=== PATIENT | male | born 1945 | race Caucasian/White ===

== ENCOUNTER → 2019-03-24 06:11 | Outpatient (CLI) | payer MEDICARE, SELFPAY ==
[2019-01-12 09:11] VITALS: BMI 36.6
--- NOTE | 2019-03-24 10:17 | STRESSREP ---
Stress Test Report Date: 03-24-19 Procedure: Pharmacologic stress nuclear imaging study Indications: Chest pain; ventricular ectopy/dysrhythmia; CAD; PCI; CABG; permanent pacemaker Consent: Per the patient Procedure: The patient underwent pharmacologic (Regadenoson) evaluation with a peak heart rate of 71 beats per minute (48 %predicted maximal heart rate) and a peak blood pressure of 148/64 mmHg. The baseline ECG demonstrated an electronic ventricular paced rhythm. The peak pharmacologic ECG demonstrated an electronic ventricular paced rhythm. There were no cardiac dysrhythmias pretest, during pharmacologic infusion, or recovery. There was no complaint of chest discomfort during pharmacologic infusion or recovery. The examination was discontinued secondary to completion of protocol. Impression: 1. Pharmacologic (Regadenoson) evaluation 2. Peak pharmacologic ECG with an electronic ventricular paced rhythm. 3. There were no cardiac dysrhythmias pretest, during pharmacologic infusion, or recovery. 4. Nuclear images pending Myocardial perfusion imaging study: Technique: The patient was injected with 14.8 millicuries of technetium 99m Cardiolite and subsequently rest SPECT Cardiolite nuclear imaging was obtained in the horizontal long, vertical long, and short axis views. The patient underwent pharmacologic (Regadenoson) evaluation with a peak heart rate of 71 beats per minute (48 % percent predicted maximal heart rate) and a peak blood pressure of 148/64 mmHg. The patient was injected with 44.1 millicuries of technetium 99m Cardiolite and subsequently stress SPECT Cardiolite nuclear imaging was obtained in the horizontal long, vertical long, and short axis views. A gated Cardiolite study at peak stress was obtained. Interpretation: Rest and stress SPECT Cardiolite nuclear imaging status post realignment, normalization, and attenuation correction demonstrate finished absence of myocardial perfusion/tracer uptake in the apical segments without significant change between rest and stress. There is diminished and systolic thickening and brightening in the aforementioned areas. The gated Cardiolite study demonstrates diminished myocardial thickening and inward wall motion in the aforementioned areas. The reported LVEF is 50 %. Impression: 1. SPECT cardio light nuclear imaging demonstrate myocardial perfusion changes compatible with previous myocardial injury/infarction involving the apical areas with no myocardial perfusion changes considered diagnostic for associated stress-induced myocardial ischemia. 2. The gated Cardiolite study reports an LVEF of 50 %. This note was generated with [employer] mobile software. It may contain incorrect words, spelling, and punctuation that were not noted in checking the note before signing.
--- NOTE | 2019-03-24 10:21 | STRESSREP_ITS ---
Stress Test Report Date: 03-24-19 Procedure: Pharmacologic stress nuclear imaging study Indications: Chest pain; ventricular ectopy/dysrhythmia; CAD; PCI; CABG; permanent pacemaker Consent: Per the patient Procedure: The patient underwent pharmacologic (Regadenoson) evaluation with a peak heart rate of 71 beats per minute (48 %predicted maximal heart rate) and a peak blood pressure of 148/64 mmHg. The baseline ECG demonstrated an electronic ventricular paced rhythm. The peak pharmacologic ECG demonstrated an electronic ventricular paced rhythm. There were no cardiac dysrhythmias pretest, during pharmacologic infusion, or recovery. There was no complaint of chest discomfort during pharmacologic infusion or recovery. The examination was discontinued secondary to completion of protocol. Impression: 1. Pharmacologic (Regadenoson) evaluation 2. Peak pharmacologic ECG with an electronic ventricular paced rhythm. 3. There were no cardiac dysrhythmias pretest, during pharmacologic infusion, or recovery. 4. Nuclear images pending Myocardial perfusion imaging study: Technique: The patient was injected with 14.8 millicuries of technetium 99m Cardiolite and subsequently rest SPECT Cardiolite nuclear imaging was obtained in the horizontal long, vertical long, and short axis views. The patient underwent pharmacologic (Regadenoson) evaluation with a peak heart rate of 71 beats per minute (48 % percent predicted maximal heart rate) and a peak blood pressure of 148/64 mmHg. The patient was injected with 44.1 millicuries of technetium 99m Cardiolite and subsequently stress SPECT Cardiolite nuclear imaging was obtained in the horizontal long, vertical long, and short axis views. A gated Cardiolite study at peak stress was obtained. Interpretation: Rest and stress SPECT Cardiolite nuclear imaging status post realignment, normalization, and attenuation correction demonstrate finished absence of myocardial perfusion/tracer uptake in the apical segments without significant change between rest and stress. There is diminished and systolic thickening and brightening in the aforementioned areas. The gated Cardiolite study de monstrates diminished myocardial thickening and inward wall motion in the aforementioned areas. The reported LVEF is 50 %. Impression: 1. SPECT cardio light nuclear imaging demonstrate myocardial perfusion changes compatible with previous myocardial injury/infarction involving the apical areas with no myocardial perfusion changes considered diagnostic for associated stress-induced myocardial ischemia. 2. The gated Cardiolite study reports an LVEF of 50 %. This note was generated with MySQL software. It may contain incorrect words, spelling, and punctuation that were not noted in checking the note before signing.
== END ==
PROVIDERS: Family Provider Internal Medicine; PCP Internal Medicine; Referring Provider Nurse Practitioner Family; Visit Provider Nurse Practitioner Family
DX: I25.810 Atherosclerosis of coronary artery bypass graft(s) without angina pectoris (principal); I47.2 Ventricular tachycardia; Z95.1 Presence of aortocoronary bypass graft
CPT/HCPCS: 78452; 93017; A9500; A4216; J2785

== ENCOUNTER → 2019-03-25 15:36 | Outpatient (CLI) | payer MEDICARE, SELFPAY ==
[2019-01-12 09:11] VITALS: BMI 36.6
[2019-03-25 17:19] LABS: Absolute Lymphocyte Count 1.81 X10^3/ul (0.83-4.51); Absolute Neutrophil Count 3.6 X10^3/uL (2.0-7.7); Basophil# 0.01 X10^3/uL; Basophil% 0.2 % (0-1); Eosinophil# 0.13 X10^3/uL; Eosinophils% 2.1 % (0-5); Hematocrit 39.1 % (40-54); Hemoglobin 12.8 g/dl (13.0-16.5); Lymphocyte # 1.81 X10^3/ul (4.0); Lymphocyte % 29.8 % (19-41); Mean Corp Hgb Conc 32.7 g/gl (32-36); Mean Corpuscular Hgb 28.3 pg (27.0-32.0); Mean Corpuscular Volume 86.3 fL (80-94); Mean Platelet Vol. 10.5 fl (6.2-12.0); Monocyte# 0.54 X10^3/uL; Monocyte% 8.9 % (0-10); Neutrophil # 3.57 X10^3/uL (2.7-7.7); Neutrophil % 58.8 % (47-70); Platelet Count 181 K/mm3 (150-450); RBC Distribution Width CV 13.8 % (11.6-14.6); Red Blood Count 4.53 M/mm3 (4.6-6.2); White Blood Count 6.1 K/mm3 (4.4-11.0)
[2019-03-25 17:23] LABS: Vitamin B12 118 pg/mL (211-911); Vitamin D,25 Hydroxy 25.3 ng/mL (29.95-100.01)
[2019-03-25 17:25] LABS: Anion Gap 8 (5-15); BUN 19 mg/dL (7-18); BUN/Creat Ratio 14.5 RATIO (10-20); Calcium,Total 8.9 mg/dL (8.5-10.1); Chloride 106 mmol/L (98-107); Creatinine, Serum 1.31 mg/dL (0.70-1.30); EST Glomerular Filtration Rate 57 mL/min (>60); Est Glom Filt Rate - Afr Amer 69 mL/min (>60); Glucose 301 mg/dL (74-106); POSITIVE COUNT NO; POSITIVE DIFFERENTIAL NO; POSITIVE MORPHOLOGY NO; Potassium 4.4 mmol/L (3.5-5.1); Sodium Level 139 mmol/L (136-145); T4 Free Direct 0.88 ng/dL (0.76-1.46); Thyroid Stim Hormone (TSH) 2.22 uIU/mL (0.358-3.74)
== END ==
PROVIDERS: Family Provider Internal Medicine; PCP Internal Medicine; Referring Provider Nurse Practitioner Family; Visit Provider Nurse Practitioner Family
DX: R53.83 Other fatigue (principal); I25.810 Atherosclerosis of coronary artery bypass graft(s) without angina pectoris; E11.9 Type 2 diabetes mellitus without complications; Z95.1 Presence of aortocoronary bypass graft
CPT/HCPCS: 36415; 80048; 82306; 82607; 84439; 84443; 85025

== ENCOUNTER 2022-05-22 18:05 | Inpatient (IN) | payer MEDICARE, SELFPAY ==
[2022-05-22] VITALS (7 sets, daily range): BP systolic 176–216; BP diastolic 69–95; PULSE 73–78; RESP 13–18; TEMP 36.4–36.6; O2SAT 95–98; BMI 34.4
--- NOTE | 2022-05-22 18:15 | EKG12_ITS ---
Test Reason : cp Blood Pressure : / mmHG Vent. Rate : 075 BPM Atrial Rate : 075 BPM P-R Int : 194 ms QRS Dur : 184 ms QT Int : 482 ms P-R-T Axes : 082 -67 105 degrees QTc Int : 538 ms Atrial-sensed ventricular-paced rhythm Abnormal ECG Confirmed by COLUMBA LAIRD, JUNAID ([id number]), editor index LISA MENDOZA ([id number]) on 05/24/2022 2:10:28 PM Referred By: Confirmed By:JUNAID WATERMAN MD
--- NOTE | 2022-05-22 18:36 | ED.VIS.CHEST ---
HPI History of Present Illness Chief Complaint: Chest Pain Narrative Narrative: 76-year-old male presenting with intermittent chest pain. Patient states that he feels kind of like tightness in the left side of his chest that radiates into the axilla. He states he takes a nitroglycerin and about 10 to 15 minutes later this will get better. Patient has history of CAD, cardiac stents, ND, CABG. Patient also states he is short of breath with exertion. He states he goes much shorter distances. He states his lower extremities are more edematous. He denies a cough. He does not describe orthopnea. No fevers, chills. No nausea. No lightheadedness. 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 CAD (coronary artery disease) Essential hypertension Myocardial infarct, old Presence of stent of bypass graft (~08/01/16) Pure hypercholesterolemia Second degree atrioventricular block Home Medications folic acid 400 mcg tablet 400 mcg PO DAILY@0800 07/28/16 [History Last Taken 07/28/16] glipizide 10 mg tablet 10 mg PO BIDAC 07/28/16 [History Last Taken Unknown] metformin 1,000 mg tablet 1,000 mg PO BIDCM 07/28/16 [History Last Taken Unknown] aspirin 81 mg chewable tablet 1 tab PO DAILY 07/07/21 [History Last Taken Unknown] clopidogrel 75 mg tablet 75 mg PO QDAY #90 tabs 11/21/21 [Rx Last Taken Unknown] lovastatin 20 mg tablet 20 mg PO DAILY #90 tabs 11/21/21 [Rx Last Taken Unknown] nitroglycerin 0.4 mg sublingual tablet (Nitrostat) 0.4 mg sublingual Q5M PRN chest pain #25 tabs 03/30/22 [Rx Last Taken Unknown] atenolol 50 mg tablet 50 mg PO DAILY 05/22/22 [History Last Taken Unknown] insulin detemir U-100 100 unit/mL (3 mL) subcutaneous pen (Levemir FlexTouch U-100 Insulin) 20 unit subcut QHS 05/22/22 [History Last Taken Unknown] isosorbide mononitrate 30 mg tablet,extended release 24 hr 30 mg PO DAILY #30 tabs 05/22/22 [Rx Last Taken Unknown] lisinopril 20 mg tablet 20 mg PO DAILY 05/22/22 [History Last Taken Unknown] Allergy/AdvReac Type Severity Reaction Status Date / Time No Known Allergies Allergy Verified 05/22/22 13:32 Family History Father Hypertension CVA (cerebral vascular accident) Mother CVA (cerebral vascular accident) Sister Mitral valve prolapse Surgical History History of back surgery History of coronary artery bypass surgery (~1996) Presence of cardiac pacemaker Presence of coronary angioplasty implant and graft S/P CABG (coronary artery bypass graft) (~1996) Social History Smoking Status: Former smoker how long ago did patient quit smokin alcohol intake: current alcohol intake frequency: holidays/special occasions only Alcohol type: beer substance use type: does not use caffeine: Yes Type: coffee Number of servings: 2 what type of physical activity do you participate in: none seatbelt use: always do you feel safe at home: Yes ROS ROS ED Constitutional Constitutional ED: Denies chills or fever(s) Eyes Eyes: Denies blurry vision or change in vision ENT ENT ED: Denies rhinorrhea or sore throat Cardiovascular Cardiovascular: Reports chest pain Respiratory/Chest Respiratory/Chest: Reports dyspnea and dyspnea on exertion Gastrointestinal Gastrointestinal: Denies abdominal pain, constipation, melena or nausea Genitourinary Genitourinary ED: Denies dysuria or hematuria Musculoskeletal Musculoskeletal: Denies arthralgias or back pain Integumentary Denies abscess or Abrasions Neurologic Neurologic: Denies headache(s) or paresthesias Psychiatric Psychiatric: Denies anxiety or depression EXAM Physical Exam Const Vital Signs: 05/22/22 18:06 05/22/22 18:06 05/22/22 18:12 Temperature 97.5 F L 97.5 F L Temperature Source Temporal Temporal Pulse Rate 77 77 Respiratory Rate 18 18 Respiratory Effort Normal Non-Labored Blood Pressure 216/95 H 216/95 H Blood Pressure Mean 135 135 Pulse Ox 96 96 Oxygen Delivery Method Room Air Room Air 05/22/22 18:29 05/22/22 20:32 Temperature Temperature Source Pulse Rate 73 Respiratory Rate 13 Respiratory Effort Blood Pressure 176/69 H Blood Pressure Mean 104 Pulse Ox 96 Oxygen Delivery Method Room Air Room Air Positive well nourished General Appearance ED: NAD; Negative for pallor HEENT Reports moist mucous membranes normocephalic and atraumatic Eyes PERRL and EOMs intact bilaterally Chest Wall inspection of chest normal and palpation of chest normal Resp normal respiratory effort and clear to auscultation bilaterally Cardio regular rate and regular rhythm GI normal to inspection, nondistended, normoactive bowel sounds Neuro oriented x3 and CN's II-XII intact bilaterally Sensorium / Orientation: awake and alert Psych mental status grossly normal Skin General Skin Exam: Negative for jaundice or pallor Heart Score History: Highly Suspicious ECG: Normal Age: >/= 65 years Risk Factors: >/= 3 Risk Factors or History of CAD Troponin: >1 - <3 Normal Limit Score: 7 MDM MDM MDM Narrative Medical decision making narrative: Patient presenting with intermittent chest pain 2 weeks. He states it is left-sided radiates to the axilla. He states this improves after about 10 to 15 minutes of taking nitroglycerin. Patient has significant cardiac history. Heart score 7. Patient has lower extremity edema. No history of CHF. BNP is elevated at 500. High-sensitivity troponin was 138 outpatient days 142 here. Patient has not had any chest pain since that time. Chest x-ray on my interpretation shows no acute cardiopulmonary process and the radiologist does agree. EKG is a paced rhythm 75 bpm without sign of ischemic change on my interpretation. Patient discussed with Dr. Millan who wants to keep him n.p.o. after midnight. He wants to perform cardiac catheterization on him tomorrow. I did discuss with him that the patient was hypertensive and I gave hydralazine his pressure did improve. Dr. Millan requested I give him 40 of Lasix IV. This was performed. Patient counseled on all findings. He is admitted to the floor in stable condition. Impression: 1. Chest pain 2. Elevated troponin 3. Dyspnea on exertion 4. Lower extremity edema Lab Data Attestation: I reviewed the patient's lab results. Labs: Laboratory Results - last 24 hr 05/22/22 18:30 Troponin I High Sens 142 H* Radiography Diagnostic Testing: Clinical Impression(s) from Imaging Studies Chest X-Ray 05/22/22 18:40 IMPRESSION: There are no acute findings. Electronically Signed: Rico Figueredo MD at 18:59 EDT Reading Location ID and State: [facility] / [place] , Service support , Discharge Plan Triage Chief Complaint: Chest Pain ED Provider: Tank Monreal Dx/Rx/DC Orders Primary Care Provider: Georgina Méndez
--- NOTE | 2022-05-22 18:40 | RAD_ITS ---
STUDY: XR Chest 1 View 05/22/2022 6:40 PM REASON FOR EXAM: Male, 76 years old. CHEST PAIN chest pain COMPARISON: 07/28/2016 TECHNIQUE: XR Chest 1 View FINDINGS: There is no demonstrated pleural abnormality. Multiple median sternotomy wires are noted consistent for cardiac surgery. There is a left sided pacemaker battery pack. Normal heart size. Normal mediastinum. Normal kevin. Prominent appearing increased interstitial lung markings. Normal visualized pulmonary arteries. There is atherosclerotic calcification of the aortic arch with tortuosity. There are diffuse degenerative changes of the visualized thoracic spine. There is degenerative osteoarthritis of the bilateral shoulders. There is no demonstrated abnormality of the visualized soft tissue structures of the upper abdomen. RAD/Chest 1 View (Portable) IMPRESSION: There are no acute findings. Electronically Signed: Rico Figueredo MD at 18:59 EDT ,
[2022-05-22] MEDS: Aspirin 81 MG TAB.CHEW 324 MG PO (18:43)
[2022-05-22] MEDS: hydrALAZINE 20 MG/ML Vial 10 MG IV ×2 (18:43→22:25)
[2022-05-22 19:08] LABS: Troponin-I HS (w/2H Reflex) 142 pg/mL (3.0-78.0)
[2022-05-22 20:36] LABS: Reflex Troponin-HS? (from REC) Y
[2022-05-22] MEDS: Furosemide 40 MG/4 ML Vial IV (21:10)
--- NOTE | 2022-05-22 21:15 | HP.PCM.HOS_ITS ---
HPI - General General Date of Admission: 05/22/22 Date of Service: 05/22/22 Chief Complaint: Chest pain HPI Narrative NAKIA HERNÁNDEZ, is a 76 M with a significant history of CAD status post CABG and stent; former tobacco abuse and permanent pacemaker who presents to the emergency department with 2 to 3 weeks of episodic substernal chest pain that radiates to the left side of his chest. The pain last for about 15 minutes. He described the pain as a pressure. The pain improves with nitroglycerin. The pain worsens with exertion. Associated with symptom is some shortness of breath. He denies any nausea or vomiting. He reports bilateral feet edema for about 1 week. Further, patient reports paroxysmal nocturnal dyspnea. He is unsure whether he has orthopnea as he always lie on his side. On the same day of presentation patient's saw cardiology nurse practitioner outpatient. Because troponin and BNP was elevated patient was called and instructed to come to the emergency department. Emergency department course: Emergency department discussed the case with cardiology and recommendation was to give Lasix 40 mg IV push. 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 CAD (coronary artery disease) Essential hypertension Myocardial infarct, old Presence of stent of bypass graft (~08/01/16) Pure hypercholesterolemia Second degree atrioventricular block Home Medications folic acid 400 mcg tablet 400 mcg PO DAILY@0800 07/28/16 [History Last Taken 07/28/16] glipizide 10 mg tablet 10 mg PO BIDAC 07/28/16 [History Last Taken Unknown] metformin 1,000 mg tablet 1,000 mg PO BIDCM 07/28/16 [History Last Taken Unknown] aspirin 81 mg chewable tablet 1 tab PO DAILY 07/07/21 [History Last Taken Unknown] clopidogrel 75 mg tablet 75 mg PO QDAY #90 tabs 11/21/21 [Rx Last Taken Unknown] lovastatin 20 mg tablet 20 mg PO DAILY #90 tabs 11/21/21 [Rx Last Taken Unknown] nitroglycerin 0.4 mg sublingual tablet (Nitrostat) 0.4 mg sublingual Q5M PRN chest pain #25 tabs 03/30/22 [Rx Last Taken Unknown] atenolol 50 mg tablet 50 mg PO DAILY 05/22/22 [History Last Taken Unknown] insulin detemir U-100 100 unit/mL (3 mL) subcutaneous pen (Levemir FlexTouch U- 100 Insulin) 20 unit subcut QHS 05/22/22 [History Last Taken Unknown] isosorbide mononitrate 30 mg tablet,extended release 24 hr 30 mg PO DAILY #30 tabs 05/22/22 [Rx Last Taken Unknown] lisinopril 20 mg tablet 20 mg PO DAILY 05/22/22 [History Last Taken Unknown] Allergy/AdvReac Type Severity Reaction Status Date / Time No Known Allergies Allergy Verified 05/22/22 13:32 Family History Father Hypertension CVA (cerebral vascular accident) Mother CVA (cerebral vascular accident) Sister Mitral valve prolapse Surgical History History of back surgery History of coronary artery bypass surgery (~1996) Presence of cardiac pacemaker Presence of coronary angioplasty implant and graft S/P CABG (coronary artery bypass graft) (~1996) Social History Smoking Status: Former smoker how long ago did patient quit smokin alcohol intake: current alcohol intake frequency: holidays/special occasions only Alcohol type: beer substance use type: does not use caffeine: Yes Type: coffee Number of servings: 2 what type of physical activity do you participate in: none seatbelt use: always do you feel safe at home: Yes ROS ROS Narrative Pertinent positives and pertinent negatives as noted in HPI. All other systems were reviewed and are negative. Vital Signs Vital Signs Vital Signs: 05/22/22 18:06 05/22/22 18:06 05/22/22 18:12 Temperature 97.5 F L 97.5 F L Temperature Source Temporal Temporal Pulse Rate 77 77 Respiratory Rate 18 18 Respiratory Effort Normal Non-Labored Blood Pressure 216/95 H 216/95 H Blood Pressure Mean 135 135 Pulse Ox 96 96 Oxygen Delivery Method Room Air Room Air 05/22/22 18:29 05/22/22 20:32 Temperature Temperature Source Pulse Rate 73 Respiratory Rate 13 Respiratory Effort Blood Pressure 176/69 H Blood Pressure Mean 104 Pulse Ox 96 Oxygen Delivery Method Room Air Room Air Weight Weight: 121.7 kg Body Mass Index (BMI) 34.4 Physical Exam Narrative Physical exam: General: Well-nourished, well-developed. Head: Normocephalic, atraumatic, no tenderness Eyes: Vision is grossly intact. EOMI ENT, no trauma, moist mucous membranes, no rhinorrhea Neck: Nontender, full range of motion, no spinal tenderness, deformities, step- off CVS: Regular rate and rhythm. S1-S2 present. No murmur, gallop or rub. Respiratory : clear to auscultation bilaterally, chest wall nontender, no wheezing Abdomen: Soft, nontender, nondistended, normal bowel sounds, no masses : Deferred Back: Nontender, no CVA tenderness, no midline spinal tenderness, deformities, step-offs Extremities: 1+ bilateral feet edema; nontender full range of motion, no trauma Skin: Normal color, no trauma, abrasions Neuro: Alert, oriented, cranial nerves II through XII grossly intact. Psychiatry: Normal mood. Normal affect. Not depressed. Not anxious. Results Lab / Micro Data Labs: Laboratory Results - last 24 hr 05/22/22 18:30: Troponin I High Sens 142 H* Radiology Impression Chest X-Ray 05/22/22 18:40 IMPRESSION: There are no acute findings. Electronically Signed: Rico Figueredo MD at 18:59 EDT Reading Location ID and State: [facility] / [place] , Service support , Assessment & Plan Assessment/Plan (1) NSTEMI, initial episode of care: (2) Hypertensive emergency: (3) Diabetes mellitus, type 2: PLAN: Plan Non-STEMI Place on a monitored bed at progressive care unit Actual CXR image was independently visualized. No acute cardiopulmonary process was noted. Actual EKG tracing was independently visualized. EKG tracing showed paced rhythm. ASA 81 mg p.o. daily and plavix continued ordered SL NTG 0.4 mg prn as needed for chest pain ordered Morphine as needed for pain ordered We will check lipid panel. Statin: Home statin continued. Anticoagulation: Lovenox therapeutic dose x1 ordered. Troponin outpatient was 136. Follow-up troponin was 142 and 138. Stat EKG as needed for chest pain Cardiology consult Dyspnea/ Bilateral lower extremity edema/Elevated BNP BNP outpatient 540.5 Echocardiogram ordered. Hypertensive emergency Max systolic blood pressure of 216. With chest pain. Received hydralazine at emergency department. Atenolol; lisinopril and metoprolol. PRN Hydralazine ordered. Diabetes mellitus Blood glucose is stable. Hold home basal insulin and metformin. Monitor Accu-Cheks Correction scale insulin ordered. DVT prophylaxis: Therapeutic dose of Lovenox x1 ordered. SCDs ordered. Charges/Coding Visit Charges Inpatient E&M: 21427 Init Hosp L3
[2022-05-22 21:32] LABS: Troponin-I HS 138 pg/mL (3.0-78.0)
--- NOTE | 2022-05-22 21:58 | EKG12_ITS ---
Test Reason : CP Blood Pressure : / mmHG Vent. Rate : 072 BPM Atrial Rate : 072 BPM P-R Int : 186 ms QRS Dur : 192 ms QT Int : 520 ms P-R-T Axes : 075 -71 102 degrees QTc Int : 569 ms Atrial-sensed ventricular-paced rhythm Abnormal ECG When compared with ECG of 22-MAY-2022 22:39, MANUAL COMPARISON REQUIRED, DATA IS UNCONFIRMED Confirmed by COLUMBA LAIRD, JUNAID ([id number]), editor city VINH MEZA ([id number]) on 05/29/2022 11:05:42 AM Referred By: Confirmed By:JUNAID WATERMAN MD
--- NOTE | 2022-05-22 21:58 | ECHOCS_ITS ---
Reason For Study: DYSPNEA/SOB Procedure This was a 2D Doppler, Color Flow transthoracic echocardiogram. The study was technically difficult. Contrast injection was performed. Exam performed portable in patient room. Left Ventricle Segmental dysfunction with preserved ejection fraction (see wall motion). The estimated ejection fraction is 55 %. Diastolic function is indeterminate. Anterior [place] : Hypokinetic. Inferior [place] : Akinetic. Lateral [place] : Hypokinetic. Septal [place] : Akinetic. Right Ventricle Normal RV size. ICD or pacer leads identified within the right ventricle. Normal systolic function. Atria The left atrium is mildly enlarged. Normal right atrium. ICD or pacer leads identified within the right atrium. Mitral Valve There is mild mitral annular calcification. Extension of the mitral annular calcification onto the base of the posterior mitral valve leaflet. Mild (1+) mitral valve insufficiency. Tricuspid Valve Normal tricuspid valve. Trivial tricuspid valve insufficiency. Right ventricular systolic pressure estimated to be 33 mmHg. Aortic Valve The aortic valve is not well visualized. Pulmonic Valve The pulmonic valve is not well visualized. Great Vessels The aortic root is not well visualized. Pericardium/Pleural No pericardial effusion. Medication Diluted definity 1.5ml given slow IV push to enhance endocardial definition. MMode/2D Measurements & Calculations RVDd: 3.0 cm LAV(MOD-bp): 106.5 ml LA A4 area: 27.0 cm2 LAV(MOD-bp) Indexed: 42.4 ml/m2 LAV(MOD-sp2): 107.6 ml LAV(MOD-sp4): 90.8 ml LA dimension(2D): 4.1 cm RA A4 area: 16.7 cm2 Time Measurements MV dec time: 0.21 sec Doppler Measurements & Calculations MV E max rolly: 96.5 cm/sec Lat Peak E' Rolly: 8.0 cm/sec Med Peak E' Rolly: 4.4 cm/sec MV A max rolly: 55.4 cm/sec E/E' lat: 12.0 E/E' med: 21.8 MV E/A: 1.7 MV V2 max: 96.7 cm/sec Ao V2 max: 129.6 cm/sec MV max P.7 mmHg MV dec slope: 460.0 cm/sec2 Ao max P.7 mmHg MV V2 mean: 58.0 cm/sec Ao V2 mean: 84.1 cm/sec MV mean P.5 mmHg Ao mean P.4 mmHg MV V2 VTI: 34.8 cm Ao V2 VTI: 29.8 cm LV V1 max: 101.4 cm/sec MR max rolly: 437.4 cm/sec TR max rolly: 274.9 cm/sec LV V1 max P.1 mmHg MR max P.5 mmHg TR max P.2 mmHg LV V1 mean P.2 mmHg LV V1 mean: 67.6 cm/sec LV V1 VTI: 24.1 cm ECHO/Echo Complete W/ Contrast Interpretation Summary The study was technically difficult. Contrast injection was performed. Segmental dysfunction with preserved ejection fraction (see wall motion). The estimated ejection fraction is 55 %. The left atrium is mildly enlarged. There is mild mitral annular calcification. Extension of the mitral annular calcification onto the base of the posterior mi tral valve leaflet. Mild (1+) mitral valve insufficiency. Trivial tricuspid valve insufficiency. Right ventricular systolic pressure estimated to be 33 mmHg. Diastolic function is indeterminate. ICD or pacer leads identified within the right atrium ICD or pacer leads identified within the right ventricle. Ordering Physician: Baldemar Suero Performed By: Hannah Gage RCS
[2022-05-22] MEDS: 0.9% Saline Lock 10 ML Syringe IV (22:25)
[2022-05-22] MEDS: Atorvastatin Calcium 10 MG Tablet 5 MG PO (23:07)
[2022-05-22] MEDS: Enoxaparin 120 MG/0.8 ML Syringe SC (23:07)
[2022-05-23] VITALS (25 sets, daily range): BP systolic 129–187; BP diastolic 50–83; PULSE 60–79; RESP 12–20; TEMP 36.4–36.9; O2SAT 92–99; BMI 34.0; BMI 34.2
[2022-05-23 00:57] LABS: Troponin-I HS 143 pg/mL (3.0-78.0)
[2022-05-23 05:04] LABS: Bedside Glucose 180 mg/dL (74-106)
[2022-05-23 05:48] LABS: Absolute Lymphocyte Count 1.38 X10^3/uL (0.83-4.51); Absolute Neutrophil Count 4.5 X10^3/uL (2.0-7.7); Basophil# 0.03 X10^3/uL; Basophil% 0.4 % (0-1); Eosinophil# 0.09 X10^3/uL; Eosinophils% 1.3 % (0-5); Hematocrit 37.7 % (40-54); Hemoglobin 12.1 g/dL (13.0-16.5); Lymphocyte # 1.38 X10^3/ul (0.83-4.51); Lymphocyte % 20.4 % (19-41); Mean Corp Hgb Conc 32.1 g/dL (32-36); Mean Corpuscular Hgb 28.3 pg (27.0-32.0); Mean Corpuscular Volume 88.1 fL (80-94); Monocyte# 0.78 X10^3/uL; Monocyte% 11.5 % (0-10); NRBC Flagged by Analyzer 0 % (0-5); Neutrophil # 4.46 X10^3/uL (2.7-7.7); Platelet Count 184 K/mm3 (150-450); RBC Distribution Width CV 15.7 % (11.6-14.6); RBC Distribution Width SD 50.1 fl (35.1-43.9); Red Blood Count 4.28 M/mm3 (4.6-6.2); White Blood Count 6.8 K/mm3 (4.4-11.0)
[2022-05-23] MEDS: Atenolol 50 MG Tablet PO (06:14)
[2022-05-23] MEDS: Clopidogrel Bisulfate 75 MG Tablet PO (06:14)
[2022-05-23] MEDS: Isosorbide Mononitrate 30 MG Tablet PO (06:14)
[2022-05-23] MEDS: Lisinopril 20 MG Tablet PO ×2 (06:15→21:57)
[2022-05-23] MEDS: Aspirin 81 MG TAB.CHEW PO (06:18)
[2022-05-23 06:29] LABS: Anion Gap 9 (5-15); BUN 19 mg/dL (7-18); BUN/Creat Ratio 17.4 RATIO (10-20); Calcium,Total 8.7 mg/dL (8.5-10.1); Chloride 104 mmol/L (98-107); Cholesterol 123 mg/dL (200); Creatinine, Serum 1.09 mg/dL (0.70-1.30); EST Glomerular Filtration Rate 70 mL/min (>60); Est Glom Filt Rate - Afr Amer 84 mL/min (>60); Estimated Creatinine Clearance 65.99 ml/min; Glucose 177 mg/dL (74-106); High Density Lipoprotein 38 mg/dL; Potassium 3.6 mmol/L (3.5-5.1); Sodium Level 141 mmol/L (136-145); Triglycerides 116 mg/dL; Very Low Density Lipoprotein 23 mg/dL (5-40)
[2022-05-23 06:45] LABS: Bedside Glucose 184 mg/dL (74-106)
--- NOTE | 2022-05-23 07:38 | CON.PCM.CA_ITS ---
Assessment & Plan Assessment/Plan (1) NSTEMI, initial episode of care: PLAN: The patient presents with findings compatible with an acute coronary syndrome/non-ST segment elevation IL. At the present time he appears without ongoing symptoms at rest. He will continue to be monitored. He will continue medical therapy. He has been asked to have reevaluation of his left ventricular wall motion and systolic function with a transthoracic echocardiogram. He has been recommended for further evaluation with diagnostic cardiac catheterization. The procedure and risk were discussed with him. He was agreeable to this approach. (2) Atherosclerosis of coronary artery bypass graft without angina pectoris: QUALIFIERS: [place] vs. transplanted heart: blackfeet heart Qualified Code(s): I25.810 - Atherosclerosis of coronary artery bypass graft(s) without angina pectoris PLAN: The patient has a history of CAD as previously noted. He has undergone revascularization in the past both percutaneously and surgically. He is continuing medical management. He will continue with his noninvasive and invasive evaluation. (3) Presence of stent of bypass graft: PLAN: The patient has a history of PCI to the SVG to the RCA performed at [facility] in 2016. His more recent noninvasive studies are noted. He will continue medical evaluation and care as noted above. (4) History of coronary artery bypass surgery: PLAN: The patient has remote CABG as noted. Again at the present time there is concern about progression of black[place] vessel disease and graft vessel disease. He will continue medical evaluation and care as noted. (5) Presence of cardiac pacemaker: PLAN: The patient has a pacemaker in place. It has not been interrogated since April 2021. An attempt will be made to have his pacemaker interrogated and arrange for future appropriate follow-up. (6) Pure hypercholesterolemia: PLAN: The patient should continue risk factor evaluation and care. (7) Essential hypertension: PLAN: The patient's blood pressures have been elevated. This may be a contributing factor to his symptoms and his objective findings. Thus his medications will be adjusted to try and bring his blood pressure under better control. Addt'l Comments The above has been discussed and reviewed with the patient, [facility] clinical staff, and the [facility] emergency department staff This note was generated using a voice recognition system and there may be incorrect words, spelling or punctuation that were not noted when reviewing the office note prior to saving. HPI Consult Data Date of Consult: 05/23/22 HPI Narrative HPI Narrative: NAKIA HERNÁNDEZ, is a 76 year old white male who presents for cardio vascular consultation based upon concerns of accelerating angina pectoris and a non-ST segment elevation IL superimposed upon a history of underlying CAD status post PCI (PCI to a CABG graft-2015: SVG to the RCA), status post CABG (1996: ABAD to the LAD and SVG to the RCA), conduction system disorder status post permanent pacemaker placement, hyperlipidemia, and hypertension. He states that over the last 2 to 3 weeks he has been noticing progressive chest discomfort. He states he gets a chest pressure that radiates across his precordium and towards his left shoulder area. It does not necessarily radiate into the neck area or down the left upper extremity. He can feel somewhat short of breath and dyspneic with that he has not had ongoing nausea, emesis, or obvious diaphoresis. He denies acute orthopnea or PND. He does states his ankles have been somewhat edematous. There has been no near-syncope or syncope. He was evaluated in the outpatient setting yesterday for his aforementioned concerns. As part of his evaluation he had an outpatient high-sensitivity troponin I level performed. It was abnormal. He was then asked to present to the emergency department for further evaluation. He did so. At that time he stated he had also been using nitroglycerin sublingual which appears to help his discomfort. In the emergency department he had repeat troponin I levels which were also elevated. His ECG demonstrates an underlying ventricular paced rhythm. His chest x-ray demonstrated no acute cardiopulmonary findings. He was subsequently placed in the hospital for further evaluation and care. As part of his care thus far he has been treated for his elevated blood pressures. He also received 1 dose of IV furosemide which he states does seem to have helped with his overall breathing sensation and his lower extremity edema. He has been recommended for further evaluation with cardiovascular consultation to consider evaluation with diagnostic cardiac catheterization. [facility] Medical History Atherosclerosis of coronary artery bypass graft without angina pectoris Atrioventricular conduction disorder CAD (coronary artery disease) Essential hypertension Myocardial infarct, old Presence of stent of bypass graft (~08/01/16) Pure hypercholesterolemia Second degree atrioventricular block Home Medications folic acid 400 mcg tablet 400 mcg PO DAILY@0800 07/28/16 [History Last Taken 07/28/16] glipizide 10 mg tablet 10 mg PO BIDAC 07/28/16 [History Last Taken Unknown] metformin 1,000 mg tablet 1,000 mg PO BIDCM 07/28/16 [History Last Taken Unknown] aspirin 81 mg chewable tablet 1 tab PO DAILY 07/07/21 [History Last Taken Unknown] clopidogrel 75 mg tablet 75 mg PO QDAY #90 tabs 11/21/21 [Rx Last Taken Unknown] lovastatin 20 mg tablet 20 mg PO DAILY #90 tabs 11/21/21 [Rx Last Taken Unknown] nitroglycerin 0.4 mg sublingual tablet (Nitrostat) 0.4 mg sublingual Q5M PRN chest pain #25 tabs 03/30/22 [Rx Last Taken Unknown] atenolol 50 mg tablet 50 mg PO DAILY 05/22/22 [History Last Taken Unknown] insulin detemir U-100 100 unit/mL (3 mL) subcutaneous pen (Levemir FlexTouch U- 100 Insulin) 20 unit subcut QHS 05/22/22 [History Last Taken Unknown] isosorbide mononitrate 30 mg tablet,extended release 24 hr 30 mg PO DAILY #30 tabs 05/22/22 [Rx Last Taken Unknown] lisinopril 20 mg tablet 20 mg PO DAILY 05/22/22 [History Last Taken Unknown] Allergy/AdvReac Type Severity Reaction Status Date / Time No Known Allergies Allergy Verified 05/22/22 13:32 Family History Father Hypertension CVA (cerebral vascular accident) Mother CVA (cerebral vascular accident) Sister Mitral valve prolapse Surgical History History of back surgery History of coronary artery bypass surgery (~1996) Presence of cardiac pacemaker Presence of coronary angioplasty implant and graft S/P CABG (coronary artery bypass graft) (~1996) Social History Smoking Status: Former smoker how long ago did patient quit smokin alcohol intake: current alcohol intake frequency: holidays/special occasions only Alcohol type: beer substance use type: does not use caffeine: Yes Type: coffee Number of servings: 2 what type of physical activity do you participate in: none seatbelt use: always do you feel safe at home: Yes ROS Constitutional Constitutional: Reports as per HPI Eyes Eyes: Reports as per HPI ENT HEENT: Reports as per HPI Cardiovascular Cardiovascular: Reports chest pain with activity, dyspnea on exertion and edema Respiratory/Chest Respiratory/Chest: Reports dyspnea on exertion Gastrointestinal Gastrointestinal: Reports as per HPI Genitourinary Genitourinary: Reports as per HPI Musculoskeletal Musculoskeletal: Reports as per HPI Integumentary Integumentary: Reports as per HPI Neurologic Neurologic: Reports as per HPI Psychiatric Psychiatric: Reports as per HPI Physical Exam Const alert, oriented x3 and no apparent distress HEENT normocephalic, head/scalp atraumatic and hearing grossly normal bilaterally Eyes PERRL, EOMs intact bilaterally, conjunctivae normal and no scleral icterus Neck full ROM, supple and no JVD Chest Chest: midline sternotomy incision Resp clear to auscultation bilaterally Cardio regular rate, regular rhythm, S1 normal heart sound and S2 normal heart sound GI normal to inspection, nondistended, normoactive bowel sounds Extremity no pedal edema Skin no rashes or lesions noted Psych mental status grossly normal Risk Stratification Risk Stratification Applicable: Yes Age >/= 65: Yes >/= 3 CAD Risk Factors (HTN, HLD, DM, family hx of CAD, or current smoker): Yes Aspirin Use in the Past 7 Days: Yes Severe Angina (>/= episodes in 24 hours): Yes EKG ST Changes >/= 0.5mm: No Positive Cardiac Marker: Yes AZRA Risk Stratification Score: 5 AZRA % Risk: 25% Risk Procedure Criteria Type of Procedure Procedure Type: Elective Elective Risks - COVID COVID Risk Discussion: The surgeon/proceduralist and patient have discussed in detail the risk of exp osure to and/or potential harm posed by the COVID-19 virus with having a surgery/procedure at this time versus the risk of delaying the surgery/procedure. It is not possible to know either the risk of delaying the surgery or procedure or chance of getting an infection with perfect accuracy, but a joint decision was made between the patient and the surgeon/proceduralist to proceed at this time with the scheduled surgery/procedure as indicated on the consent form. Objective Data Vital Signs: Vital Signs Temp Pulse Resp BP Pulse Ox O2 Del Method 98.3 F 76 16 165/75 H 97 Room Air 05/23/22 06:05 07/20/22 06:05 05/23/22 06:05 05/23/22 06:05 05/23/22 06:05 05/23/22 06:05 Oxygen Delivery Method Room Air Weight: 265 lb 3.457 oz Body Mass Index (BMI) 34.0 Lab / Micro Data Result Diagrams: 05/23/22 04:22 05/23/22 04:22 Labs: Laboratory Results - last 24 hr 05/22/22 18:30: Troponin I High Sens 142 H* 05/22/22 20:36: Troponin I High Sens 138 H* 05/23/22 00:06: POC Glucose 180 H 05/23/22 00:28: Troponin I High Sens 143 H* 05/23/22 04:22: WBC 6.8, RBC 4.28 L, Hgb 12.1 L, Hct 37.7 L, MCV 88.1, MCH 28.3, MCHC 32.1, RDW Std Deviation 50.1 H, RDW Coeff of Patricia 15.7 H, Plt Count 184, MPV 11.0, Immature Gran % (Auto) 0.400, Neut % (Auto) 66.0, Lymph % (Auto) 20.4, Union % (Auto) 11.5 H, Eos % (Auto) 1.3, Baso % (Auto) 0.4, Absolute Neuts (auto) 4.5, Absolute Lymphs (auto) 1.38, Nucleated RBC % 0 05/23/22 04:22: Sodium 141, Potassium 3.6, Chloride 104, Carbon Dioxide 28.0, Anion Gap 9, BUN 19 H, Creatinine 1.09, Estim Creat Clear Calc 65.99, Est GFR (MDRD) Af Amer 84, Est GFR (MDRD) Non-Af 70, BUN/Creatinine Ratio 17.4, Glucose 177 H, Calcium 8.7, Triglycerides 116, Cholesterol 123, LDL Cholesterol 62, VLDL Cholesterol 23, HDL Cholesterol 38 L 05/23/22 05:54: POC Glucose 184 H Cardiology Labs/Tests 05/23/22 04:22: WBC 6.8, RBC 4.28 L, Hgb 12.1 L, Hct 37.7 L, MCV 88.1, MCH 28.3, MCHC 32.1, Plt Count 184, MPV 11.0, Immature Gran % (Auto) 0.400, Neut % (Auto) 66.0, Lymph % (Auto) 20.4, Union % (Auto) 11.5 H, Eos % (Auto) 1.3, Baso % (Auto) 0.4, Absolute Neuts (auto) 4.5, Nucleated RBC % 0 05/23/22 04:22: Sodium 141, Potassium 3.6, Chloride 104, Carbon Dioxide 28.0, Anion Gap 9, BUN 19 H, Creatinine 1.09, Est GFR (MDRD) Af Amer 84, Est GFR (MDRD) Non-Af 70, BUN/Creatinine Ratio 17.4, Glucose 177 H, Calcium 8.7, Triglycerides 116, Cholesterol 123, LDL Cholesterol 62, VLDL Cholesterol 23, HDL Cholesterol 38 L Rhythm: Ventricular paced EKG: Ventricular paced ECHO: 07-30-2016 Transthoracic Echocardiogram from 07/30/2016: Interpretation Summary Normal LV size. Left ventricular systolic function is normal. The estimated ejection fraction is 65%. The study was technically limited.? The study was technically difficult. Stress Test: 03-24-2019 Date: 03-24-19 Procedure: Pharmacologic stress nuclear imaging study Indications: Chest pain; ventricular ectopy/dysrhythmia; CAD; PCI; CABG; pe rmanent pacemaker Consent: Per the patient Procedure: The patient underwent pharmacologic (Regadenoson) evaluation with a peak heart rate of 71 beats per minute (48 %predicted maximal heart rate) and a peak blood pressure of 148/64 mmHg. The baseline ECG demonstrated an electronic ventricular paced rhythm.? The peak pharmacologic ECG demonstrated an electronic ventricular paced rhythm. There were no cardiac dysrhythmias pretest, during pharmacologic infusion, or recovery. There was no complaint of chest discomfort during pharmacologic infusion or recovery. The examination was discontinued secondary to completion of protocol. Impression: 1.? Pharmacologic (Regadenoson) evaluation 2.? Peak pharmacologic ECG with an electronic ventricular paced rhythm. 3.? There were no cardiac dysrhythmias pretest, during pharmacologic infusion, or recovery. 4.? Nuclear images pending Myocardial perfusion imaging study: Technique: The patient was injected with 14.8 millicuries of technetium 99m Cardiolite and subsequently rest SPECT Cardiolite nuclear imaging was obtained in the horizontal long, vertical long, and short axis views. The patient underwent pharmacologic (Regadenoson) evaluation with a peak heart rate of 71 beats per minute (48 % percent predicted maximal heart rate) and a peak blood pressure of 148/64 mmHg. The patient was injected with 44.1 millicuries of technetium 99m Cardiolite and subsequently stress SPECT Cardiolite nuclear imaging was obtained in the horizontal long, vertical long, and short axis views.? A gated Cardiolite study at peak stress was obtained. Interpretation: Rest and stress SPECT Cardiolite nuclear imaging status post realignment, normalization, and attenuation correction demonstrate finished absence of myocardial perfusion/tracer uptake in the apical segments without significant change between rest and stress.? There is diminished and systolic thickening and brightening in the aforementioned areas.? The gated Cardiolite study demonstr ates diminished myocardial thickening and inward wall motion in the aforementioned areas.? The reported LVEF is 50 %. Impression: 1.? SPECT cardio light nuclear imaging demonstrate myocardial perfusion changes compatible with previous myocardial injury/infarction involving the apical areas with no myocardial perfusion changes considered diagnostic for associated stress-induced myocardial ischemia. 2.? The gated Cardiolite study reports an LVEF of 50 %. Cardiac Cath: 07-31-2016 Heart cath in July 2016: Final impression: 1.? Borderline elevation of the left ventricular end-diastolic pressures 2.? Left ventricle: A.? Hypokinesis of the distal inferior/inferior segments B.? Estimated LVEF of 55% 3.? Left main coronary: A.? Distal mild eccentric calcification B.? Distal 25% appearing stenosis 4.? Left anterior descending coronary artery: A.? Status post septal claims support specialist: Occluded B.? Remainder the vessel filling from the ABAD graft and demonstrating, status post attachment of the ABAD graft, 25% appearing stenosis 5.? Diagonal branch: A.? Minimal luminal irregularities 6.? Left circumflex coronary artery: A.? Mid 10-25% diffuse appearing stenosis 7.? Right coronary artery: A.? Large dominant vessel B.? Proximal 25% diffuse appearing stenosis C.? Subsequently occluded D.? Right PDA filling from the SVG graft and demonstrating no angiographically significant appearing disease distal to the graft attachment 8.? ABAD to the LAD: A.? Patent with no angiographically significant appearing disease 9.? SVG to the RCA: A.? Patent with mid eccentric subtotal occlusion discrete Radiography Diagnostic Testing: Radiology Impression Chest X-Ray 05/22/22 18:40 IMPRESSION: There are no acute findings. Electronically Signed: Rico Figueredo MD at 18:59 EDT ,
[2022-05-23] MEDS: amLODIPine 2.5 MG Tablet PO (08:15)
--- NOTE | 2022-05-23 09:17 | NURSING ---
Report called to Xiomy in scientific laboratory supervisor at 0915.
--- NOTE | 2022-05-23 11:14 | PCI.CARDCATH ---
PCI Cardiac Cath Report PCI Report: Procedure: Of diffuse Clinical history: [] Indication: [] Heart failure: [] Stress/imaging: [] CAD presentation: [] Summary: [] Procedure Details The risks, benefits, complications, treatment options, and expected outcomes were discussed with the patient. The patient and/or family concurred with the proposed plan, giving informed consent. Patient was brought to the salvage laborer after IV hydration . Patient was further sedated with IV conscious sedation. Subject was prepped and draped in the usual manner. Using the modified Seldinger access technique, a 6 Bangladeshi sheath was placed in the []. Standard diagnostic catheters were used. Exchanges were performed over J-wire. At the end of the procedures, all catheters and sheaths were removed and bleeding was stopped with closure device using [] Findings: Moderate Sedation: Conscious sedation was administered under my supervision with cardiorespiratory monitoring performed by independent and qualified nursing personnel. Medications and dosages are recorded separately in the electronic medical record. Left ventriculogram: [] Hemodynamics: BP [] LVEDP [] HR [] EF [] Comment: [] Coronary Anatomy: [] dominance Left Main : [] LAD: [ ] Diagonals : [] Circumflex : [] Major Obtuse Marginals : [ ] Right Coronary Artery: [ ] Intervention Lesion: [ ] Guiding Catheter used[ ]Guide Wire used: [] Balloon used: [] Stents Used: [] Procedure in detail: [] Estimated Blood Loss: [Minimal] Complications: None Disposition condition: Stable Conclusion: [ ] Recommendation: [ ]
--- NOTE | 2022-05-23 11:15 | PCIREPORT_ITS ---
PCI Cardiac Cath Report PCI Report: 1. Successful PCI of diffuse D1 proximal/diagonal 75% stenosis with predilatation using 2 x 15 mm balloon Followed by placement of a drug-eluting stent MONY/Orsiro [place] 2.5 x 18 mm with reduction of stenosis to 0% And maintenance of PT and post AZRA-3 flow 2. Successful placement of Perclose to the right common femoral artery arteriotomy site. Consent; Risk and benefits of the procedure explained in detail to the patient he elected to proceed informed consent obtained. Preprocedure diagnosis 76-year-old patient who presented with symptoms of chest pain with a clinical diagnosis compatible with acute coronary syndromes non-ST elevation myocardial infarction Patient has known coronary artery disease multivessel With history of bypass graft Based on his clinical presentation he underwent cardiac catheterization today by his primary permastone applicator Dr. Millan Angiographic views were studied Patient has severe [place] coronary artery atherosclerosis with occluded LAD and RCA Patency of ABAD to LAD demonstrated as well as patency of the SVG graft to the RCA. Patient had cardiac catheterization before in 2015 at [facility] And based on the clinical presentation noted he had significant diffuse 75% stenosis of the diagonal branch and we proceed with a PCI and stent of the moderate to large size diagonal branch. Interventional equipments and plan; 1. 6 [place] sheath in the right common femoral artery 2. 6 [place] 3.5 EBU guide catheter 3. 0.014 run-through extra floppy 180 cm straight wire 4. 0.035 to 60 cm exchange wire 5. 2 x 15 mm emerge MR balloon 6. 2.5 x 18 mm drug-eluting stent to/Orsiro/MONY 7. Perclose applied to right common femoral artery. Medication used in the Applications Manager 1. Brilinta 180 mg given in the Applications Manager 2. Aspirin 3. Heparin total of 7000 unit with ACT level 196 patient given additional 3000 units of heparin Procedure in detail; Under fluoroscopic guidance to proceed with 6 [place] 3.5 EBU guide catheter advanced sending aorta cannulated the left main without difficulty Following this selective angiographic view of the diagonal obtained at ANN caudal view .We will proceed with the guidewire run-through across the lesion in the proximal portion of the first diagonal branch, This is followed by predilatation using 2 x 15 mm balloon, followed by placement of drug-eluting stent 2.5 x 18 mm Orsiro/[place]/MONY Up to 16 MICHELLE with reduction of stenosis to 0% and maintenance of AZRA-3 flow with no complication in the Applications Manager Following this all catheter removed, selective right common femoral artery angiography obtained And a Perclose used to close the right common femoral artery arteriotomy site Conclusion recommendation Patient with extensive cardiac history with history of CABG and patency of the grafts noted which is ABAD to LAD and SVG to RPDA Patient underwent successful PCI of diffuse diagonal branch atherosclerosis 1. Continue on DAPT Brilinta low-dose aspirin for 1 year 2. Patient is scheduled for phase 1 cardiac rehab program here at [facility] 3. Patient to follow-up with the primary permastone applicator Dr. Millan for continuation of cardiac care And for medical treatment. Jimmy Sweet MD,FACC,[facility]
--- NOTE | 2022-05-23 11:15 | EKG12_ITS ---
Test Reason : series Blood Pressure : / mmHG Vent. Rate : 069 BPM Atrial Rate : 069 BPM P-R Int : 190 ms QRS Dur : 198 ms QT Int : 528 ms P-R-T Axes : 076 -70 103 degrees QTc Int : 565 ms Atrial-sensed ventricular-paced rhythm Abnormal ECG When compared with ECG of 23-MAY-2022 22:18, MANUAL COMPARISON REQUIRED, DATA IS UNCONFIRMED Confirmed by COLUMBA LAIRD, JUNAID ([id number]), copy editor VINH MEZA ([id number]) on 05/30/2022 12:58:11 PM Referred By: Confirmed By:JUNAID WATERMAN MD
--- NOTE | 2022-05-23 11:34 | CL.D_ITS ---
Patient Name: NAKIA HERNÁNDEZ Study Date: 05/23/2022 Performing: Lalo Millan MD Ht: 74 inches 188 cm : 1945 Wt: 264.9 lbs 120 kg Age: 76 Gender: male BSA: 2.45 PROCEDURE(S) PERFORMED DC04-(59638)LHC/COR/CABG IC12-(49320/C9600)MONY W/WO PTCA, SINGLE CORONARY ARTERY CLINICAL PROFILE AND INDICATIONS Indications: ACS <= 24 hrs, Worsening Angina, Suspected CAD Heart Failure: None Stress/Imaging Stress/Image Study Performed: No Angina Classification Anginal Classification w/in 2 Weeks: CCS III CAD Presentations: Non-STEMI. CONCLUSIONS [place] Multivessel CAD ABAD to LAD: patent SVG to RPDA: SVG stent: patent RECOMMENDATIONS Risk factor modification Medical therapy Referred for immediate PCI Case discussed / reviewed with Dr. Sweet of Interventional Cardiology DESCRIPTION OF PROCEDURE The patient arrived to the procedure lab. The risks and benefits of the procedure as well as a full d escription of our services here and current unavailability of surgical backup were fully explained to the patient and/or their significant other prior to the catheterization. The Timeout was completed, verifying the correct patient and procedure. The patient's procedural site was prepped and draped in the usual fashion. Local anesthetic was given subcutaneously to right groin region with Lidocaine 2%. Using a modified Seldinger technique, arterial access was obtained via the right femoral artery, a 4 Fr sheath was inserted Left Coronary Artery selective angiography was performed in multiple views us ing a 4 Fr. JL5 catheter. Right Coronary Artery selective angiography was then performed in multiple views using a 4 Fr. JR4 catheter. Saphenous Vein graft to the RCA selective angiography was performed in multiple views using a 4 Fr. JR4 catheter. Left internal mammary artery graft to the LAD selective angiography was performed in multiple views using a 4 Fr. IM catheter.Contrast was inje cted through the sheath and the Right Iliac and Femoral artery were assessed for possible closure dev ice.The arterial sheath was pulled and a Perclose closure device was deployed for hemostasis CORONARY ANGIOGRAPHY DOMINANCE: Right Dominant LEFT HEART ASSESSMENT Left Ventricular Ejection Fraction: Not assessed LEFT MAIN: Mild calcification, distal: 25 % Stenosis LEFT ANTERIOR DESCENDING ARTERY: MID LAD: is occluded, mid to distal filling from the ABAD graft with no angiographically significant disease distal to the graft attachment DIAGONAL 1: Proximal - long: diffuse: 85 % Stenosis CIRCUMFLEX ARTERY: Mild luminal irregularities MID CIRC: eccentric: 10 - 25 % Stenosis RIGHT CORONARY ARTERY: PROX RCA: diffuse: 25 % Stenosis MID RCA: is occluded RT PDA: Proximal - fills from the SVG graft with no angiographically significant disease distal to th e graft attachment GRAFTS: ABAD graft to the Mid LAD is patent Saphenous Vein graft to the RPDA previously placed stent in the SVG is patent COMPLICATIONS No Complications PROCEDURE MEDICATIONS Versed 1 mg IV Fentanyl 50 mcg IV Oxygen: 2 L/min via nasal cannula Brilinta 180 mg PO @ 05/23/2022 10:31:17 Heparin 7000 unit(s) IV 05/23/2022 10:35:50 Heparin 3000 unit(s) IV 05/23/2022 10:58:48 SUMMARY OF HEMODYNAMIC DATA Time AIR REST ECG 09:38:38 AO 167/89 (126) SA 10:05:02 Signed By Lalo Millan MD On 05/23/2022 11:32:52 AM Lalo Millan MD
[2022-05-23] MEDS: 0.9% Normal Saline 1,000 ML 75 ML IV (12:00)
--- NOTE | 2022-05-23 12:02 | CASEMGMT ---
RN CM Face to Face with patient for initial transition planning/care coordination assessment. RN CM introduced self and role at [facility]. Patient lying in bed, alert and oriented, family at bedside. Patient willing to participate in assessment and is able to answer all questions appropriately. Care providers, pharmacy, and demographics verified. Patient wishes to discharge home, denies need for home health at this time. Patient states he has no further needs or concerns at this time. CM to follow for discharge planning needs that may arise. 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 Insurance: [employer] Prescription Benefit: yes Living Will/HPOA: yes, Tiffany Lebron HPOA LNOK: , son Living Arrangements: Patient lives with in a single story home with 3-4 steps with railing to enter the home. Transportation: self, DME/HHC: Patient states he has raised toilet and cane at home Patient denies previous HHC or SNF Disposition Plan: Patient to discharge home with family support and follow-up plans in place. Nadia CARRASCON, RN, CM
[2022-05-23] MEDS: hydrALAZINE 20 MG/ML Vial 10 MG IV (12:27)
--- NOTE | 2022-05-23 12:32 | PN.HOSP_ITS ---
Documented by User: Maine Yepez NP, ZYGLO INSPECTOR-C 05/23/22 13:03 Subjective Subjective Patient seen and examined. Reports shortness of breath. Denies further chest pain/pressure. States his lower extremities are swollen compared to normal. Objective Data Objective Data Vital Signs: Vital Signs Temp Pulse Resp BP Pulse Ox O2 Del Method 98.3 F 60 16 181/71 H 98 Room Air 05/23/22 11:30 05/23/22 12:27 05/23/22 12:19 05/23/22 12:27 05/23/22 12:19 05/23/22 12:19 Oxygen Delivery Method Room Air Weight: 265 lb 3.457 oz Body Mass Index (BMI) 34.0 Lab / Micro Data Result Diagrams: 05/23/22 04:22 05/23/22 04:22 Labs: Laboratory Results - last 24 hr 05/22/22 18:30: Troponin I High Sens 142 H* 05/22/22 20:36: Troponin I High Sens 138 H* 05/23/22 00:06: POC Glucose 180 H 05/23/22 00:28: Troponin I High Sens 143 H* 05/23/22 04:22: WBC 6.8, RBC 4.28 L, Hgb 12.1 L, Hct 37.7 L, MCV 88.1, MCH 28.3, MCHC 32.1, RDW Std Deviation 50.1 H, RDW Coeff of Patricia 15.7 H, Plt Count 184, MPV 11.0, Immature Gran % (Auto) 0.400, Neut % (Auto) 66.0, Lymph % (Auto) 20.4, Eagle % (Auto) 11.5 H, Eos % (Auto) 1.3, Baso % (Auto) 0.4, Absolute Neuts (auto) 4.5, Absolute Lymphs (auto) 1.38, Nucleated RBC % 0 05/23/22 04:22: Sodium 141, Potassium 3.6, Chloride 104, Carbon Dioxide 28.0, Anion Gap 9, BUN 19 H, Creatinine 1.09, Estim Creat Clear Calc 65.99, Est GFR (MDRD) Af Amer 84, Est GFR (MDRD) Non-Af 70, BUN/Creatinine Ratio 17.4, Glucose 177 H, Calcium 8.7, Triglycerides 116, Cholesterol 123, LDL Cholesterol 62, VLDL Cholesterol 23, HDL Cholesterol 38 L 05/23/22 05:54: POC Glucose 184 H Radiography Diagnostic Testing: Radiology Impression Chest X-Ray 05/22/22 18:40 IMPRESSION: There are no acute findings. Electronically Signed: Rico Figueredo MD at 18:59 EDT Reading Location ID and State: [facility] / [place] , Service support , Echocardiogram 05/22/22 21:58 Interpretation Summary The study was technically difficult. Contrast injection was performed. Segmental dysfunction with preserved ejection fraction (see wall motion). The estimated ejection fraction is 55 %. The left atrium is mildly enlarged. There is mild mitral annular calcification. Extension of the mitral annular calcification onto the base of the posterior mitral valve leaflet. Mild (1+) mitral valve insufficiency. Trivial tricuspid valve insufficiency. Right ventricular systolic pressure estimated to be 33 mmHg. Diastolic function is indeterminate. ICD or pacer leads identified within the right atrium ICD or pacer leads identified within the right ventricle. Ordering Physician: Baldemar Suero Performed By: Hannah Gage RCS Physical Exam Const alert and oriented x3 Orientation / Consciousness: awake, oriented to person, oriented to place and oriented to time HEENT normocephalic and moist oral mucous membranes Eyes PERRL, EOMs intact bilaterally and conjunctivae normal Neck no lymphadenopathy Resp clear to auscultation bilaterally Auscultation: diminished lung sounds Cardio regular rate, regular rhythm and no murmurs Cardio Narrative: Ventricular paced Peripheral Pulses: pulses 2+ throughout GI normal to inspection, nondistended, normoactive bowel sounds, non-tender and non-distended Extremity normal to inspection General Extremity: edema bilateral lower extremity (Nonpitting) Skin no rashes or lesions noted Lesions: no lesions Rashes: no rashes Trauma: no lacerations or abrasions Neuro CN's II-XII intact bilaterally, no focal motor deficits, no sensory deficits noted and deep tendon reflexes 2+ bilaterally Psych mental status grossly normal and affect normal Assessment & Plan Assessment/Plan (1) NSTEMI, initial episode of care: (2) Chest pain: (3) Hypertensive emergency: PLAN: Plan 1. NSTEMI, unstable angina-status post successful PCI and stent of diagonal branch. Continue aspirin, statin, Brilinta. Previously on Plavix which will be discontinued. Continue atenolol, isosorbide, lisinopril, amlodipine. Cardiology following. 2. Hypertensive emergency-improved. Remains above goal. Continue home atenolol, isosorbide. Initiated on amlodipine 2.5 mg daily and home lisinopril increased to 20 mg twice daily. Further adjustments pending ongoing blood pre ssure monitoring. 3. Acute heart failure with preserved ejection fraction- BNP 540. Reports shortness of breath and lower extremity swelling. Chest x-ray without acute process. Echocardiogram demonstrates an EF of 55%, mild mitral valve insufficiency, RVSP estimated to be 33 mmHg. IV Lasix x1 in ED. We will repeat an additional dose of Lasix 40 mg x 1. 4. CAD with history of CABG/PCI-ongoing medical management as noted above. Follows with Dr. Millan. 5. 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 Hyperlipidemia-continue statin 7. Type 2 diabetes mellitus-hold oral regimen. Accu-Cheks with sliding scale insulin. Has not had hemoglobin A1c since 2016. We will add lab. DVT prophylaxis-SCDs This patient was seen by FILOMENA Carreon under the supervision of Dr. Kendall. Time spent examining patient, reviewing data and subsequent management of care: 15 minutes Documented by User: Dr. Lino Kendall MD 07/20/22 15:02 Objective Data Lab / Micro Data Result Diagrams: 05/23/22 04:22 05/23/22 04:22 Assessment & Plan Assessment/Plan (1) NSTEMI, initial episode of care: (2) Chest pain: (3) Hypertensive emergency: Charges/Coding Addendum Addendum: Addendum: Dr. Kendall I personally examined the patient and reviewed the chart. I agree with the abov e. 76-year-old male presents to the hospital with chest pain over the last 2 to 3 weeks. He does have a prior history of coronary artery disease and has a history of a CABG as well as a stent. He underwent cardiac cath today and needed a stent placed in his diagonal branch. We will continue to adjust his blood pressure medication as he was fairly hypertensive in the [employer]. He is also complaining of some shortness of breath so we will trial him on a one-time dose of Lasix and monitor. Also continue with dual antiplatelets, his Plavix was discontinued and he was continued on Brilinta however he cannot afford this as an outpatient will likely have to go back to Plavix. Clinical time spent in all aspects of patient care: 18 minutes Visit Charges Inpatient E&M: 01480 Subs Hosp L2
[2022-05-23] MEDS: Insulin Lispro 100 UNIT/ML INSULN.PEN SC ×3 (12:41→23:31)
[2022-05-23] MEDS: Folic Acid 1 MG Tablet 0.5 MG PO (12:41)
[2022-05-23] MEDS: Acetaminophen 325 MG Tablet 650 MG PO (12:44)
[2022-05-23] MEDS: Ondansetron 4 MG/2 ML Vial IV (12:48)
[2022-05-23 12:50] LABS: Bedside Glucose 200 mg/dL (74-106)
[2022-05-23] MEDS: Furosemide 40 MG/4 ML Vial IV ×2 (13:23→19:00)
[2022-05-23 13:50] LABS: Hemoglobin A1c 7.1 % (3.8-5.6)
--- NOTE | 2022-05-23 14:19 | CRPHASE1_ITS ---
Patient Communication PHII Cardiac Rehab Discussed with Patient:: Yes Guide to Cardiac Rehab Given to Patient:: Yes Cardiac Rehab Facility Choice List Given to Patient:: Yes Choice Program [facility] PHII:: Communication Given to CR, Refer to [facility] General Warehouse Associate:: Jimmy Sweet - Intervention Dr De La Torre Phase II Cardiac Rehab:: Yes - To occur after discharge Sessions:: 36 sessions - 3 days/wk, 12 weeks Cardiac Rehabilitation Info Cardiac Rehabilitation Program Information: Cardiac Rehabilitation is important for patients like you who are recovering from a heart problem. Cardiac rehabilitation programs are recognized as integral to the continued care of the patient with coronary heart disease. The cardiac rehabilitation program is designed to optimize a patient's physical, psychological, and social functioning. Health long term acute care registered nurse work in cardiac rehabilitation programs and assist you with getting the treatments you need to get stronger and healthier - like exercise, healthy eating habits, and medications. Cardiac rehabilitation has been show to help people with heart problems live longer and have better life enjoyment than people who do not go to cardiac rehabilitation. Please contact the Cardiac Rehabilitation Program at [facility] at in two weeks if you have not heard from them.
--- NOTE | 2022-05-23 14:21 | CRPHASE1_ITS ---
Patient Communication PHII Cardiac Rehab Discussed with Patient:: Yes Guide to Cardiac Rehab Given to Patient:: Yes Cardiac Rehab Facility Choice List Given to Patient:: Yes Choice Program [facility] PHII:: Communication Given to CR, Refer to [facility] Concession Manager:: Jimmy Sweet - Intervention Dr De La Torre Phase II Cardiac Rehab:: Yes - TO OCCUR AFTER DISCHARGE Sessions:: 36 sessions - 3 days/wk, 12 weeks Cardiac Rehabilitation Info Cardiac Rehabilitation Program Information: Cardiac Rehabilitation is important for patients like you who are recovering from a heart problem. Cardiac rehabilitation programs are recognized as integral to the continued care of the patient with coronary heart disease. The cardiac rehabilitation program is designed to optimize a patient's physical, psychological, and social functioning. Health respiratory care practitioner work in cardiac rehabilitation programs and assist you with getting the treatments you need to get stronger and healthier - like exercise, healthy eating habits, and medications. Cardiac rehabilitation has been show to help people with heart problems live longer and have better life enjoyment than people who do not go to cardiac rehabilitation. Please contact the Cardiac Rehabilitation Program at [facility] at in two weeks if you have not heard from them.
--- NOTE | 2022-05-23 14:22 | CRPH1.INSTRU ---
General Education CAD and cardiac anatomy and function:: Needs reinforcement Explanation of diagnoses and procedures:: Needs reinforcement Sign/Symptoms of OK:: Needs reinforcement Antiplatelet therapy: Needs reinforcement Proper use of NTG-SL: Family returns demonstration, Needs reinforcement Emergency procedures and activation of EMS: Needs reinforcement Compliance of all prescribed medications: Needs reinforcement Smoking Patient Nicotine/Smoking Risk Factors Are:: Cigarettes Recommendations Include:: Previous smoker; encourage continued cessation Nicotine/Smoking Response Code:: Needs reinforcement Dyslipidemia Patient Dyslipidemia Risk Factors Are:: Total Cholesterol - 123, Triglycerides - 116, HDL - 38, LDL - 62 Recommendations Include:: Lipid profile provided Dyslipidemia Response Code:: Needs reinforcement Hypertension Recommendations Include:: BP <130/80 if diabetic, DASH dietary guidelines, Decrease/maintain normal body weight, Moderation of ETOH Hypertension:: Needs reinforcement Heart Disease Patient Heart Disease Risk Factors Are:: Previous cardiac event Heart Disease Response Code:: Needs reinforcement Diabetes Patient Diabetes Risk Factors Are:: Elevated blood sugars Recommendations Include:: Maintain fasting blood sugars 70-110 md/dL, Maintain HgbA1c of 6% or less, Monitor blood sugar as prescribed, Diabetic dietary guidelines, Decrease/maintain body weight Diabetes:: Needs reinforcement Sedentary Patient Sedentary Risk Factors Are:: Lack of regular exercise Recommendations Include:: Aerobic exercise 5-7 times/week for 20-30 minutes continuously, Benefits of regular exercise, Discussed home walking program, Monitored Outpatient Cardiac Rehab Sedentary Response Code:: Needs reinforcement
--- NOTE | 2022-05-23 16:03 | CASEMGMT ---
Addendum entered by Houston Sánchez 05/24/22 10:41: Spoke lisa/Alphonso @ [facility] pharmacy. He confirms Brilinta savings card will be applied-1st 30 days will be free. Refills for Brilinta will be $47 /month until Gap period begins. USAMA THOMPSON to room. Pt sleeping. and dtr @ bedside. They were made aware and also discussed Brilinta savings card. Questions answered. They voice understanding. Original Note: USAMA THOMPSON NOTE: Pt to discharge home on Brilinta. USAMA THOMPSON to room. Introduced self and role. Pt made aware of Brilinta savings card and that [facility] retail pharmacy will apply it. Pt made aware, if refills are not affordable, to discuss more affordable options with head of digital advertising & integration @ f/u appt. Questions answered. He voiced understanding. Ashley GARLAND RN CM
[2022-05-23 17:21] LABS: Bedside Glucose 299 mg/dL (74-106)
--- NOTE | 2022-05-23 18:15 | EKG12_ITS ---
Test Reason : CP Blood Pressure : / mmHG Vent. Rate : 072 BPM Atrial Rate : 072 BPM P-R Int : 186 ms QRS Dur : 192 ms QT Int : 520 ms P-R-T Axes : 075 -71 102 degrees QTc Int : 569 ms Atrial-sensed ventricular-paced rhythm Abnormal ECG When compared with ECG of 22-MAY-2022 22:39, MANUAL COMPARISON REQUIRED, DATA IS UNCONFIRMED Confirmed by COLUMBA LAIRD, JUNAID ([id number]), fan mail editor VINH MEZA ([id number]) on 05/29/2022 11:07:51 AM Referred By: Confirmed By:JUNAID WATERMAN MD
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
[2022-05-23] MEDS: TICAGRELOR 90 MG TABLET PO (21:56)
[2022-05-23] MEDS: Atorvastatin Calcium 10 MG Tablet 5 MG PO (21:56)
[2022-05-23] MEDS: Nitroglycerin (INPATIENT USE) 0.4 MG TAB.SUBL SL ×3 (22:05→22:21)
[2022-05-23] MEDS: Morphine 2 MG/ML Syringe IV (22:31)
[2022-05-23 23:51] LABS: Bedside Glucose 240 mg/dL (74-106)
[2022-05-24 02:52] VITALS: PULSE 61
[2022-05-24 03:18] VITALS: BP 152/55; PULSE 68; RESP 18; TEMP 36.7; O2SAT 95
[2022-05-24 04:14] LABS: Hematocrit 38.7 % (40-54); Hemoglobin 12.1 g/dL (13.0-16.5); Mean Corp Hgb Conc 31.3 g/dL (32-36); Mean Corpuscular Hgb 28.1 pg (27.0-32.0); Mean Corpuscular Volume 89.8 fL (80-94); Mean Platelet Vol. 9.9 fl (6.2-12.0); Platelet Count 190 K/mm3 (150-450); RBC Distribution Width CV 15.5 % (11.6-14.6); RBC Distribution Width SD 50.3 fl (35.1-43.9); Red Blood Count 4.31 M/mm3 (4.6-6.2)
[2022-05-24 04:37] LABS: ALB/GLOB Ratio 0.8 RATIO (0.9-2.4); AST(SGOT) 12 U/L (15-37); Alanine Aminotransfer ALT/SGPT 18 U/L (16-61); Alkaline Phosphatase 46 U/L (45-117); Anion Gap 7 (5-15); BUN 19 mg/dL (7-18); BUN/Creat Ratio 14.1 RATIO (10-20); Calcium,Total 8.9 mg/dL (8.5-10.1); Chloride 102 mmol/L (98-107); Creatinine, Serum 1.35 mg/dL (0.70-1.30); EST Glomerular Filtration Rate 54 mL/min (>60); Est Glom Filt Rate - Afr Amer 66 mL/min (>60); Estimated Creatinine Clearance 53.28 ml/min; Globulin 3.6 g/dL (2.2-4.2); Glucose 205 mg/dL (74-106); Potassium 3.2 mmol/L (3.5-5.1); Protein, Total 6.6 g/dL (6.4-8.2); Sodium Level 140 mmol/L (136-145)
[2022-05-24 04:46] LABS: Troponin-I HS 232 pg/mL (3.0-78.0)
[2022-05-24] MEDS: Insulin Lispro 100 UNIT/ML INSULN.PEN SC ×2 (06:09→12:57)
[2022-05-24 06:31] LABS: Bedside Glucose 210 mg/dL (74-106)
[2022-05-24 07:00] VITALS: PULSE 74
[2022-05-24 07:42] VITALS: O2SAT 94
[2022-05-24 08:25] VITALS: BP 160/85; PULSE 67; RESP 18; TEMP 36.7; O2SAT 95
[2022-05-24] MEDS: Lisinopril 20 MG Tablet PO (08:29)
[2022-05-24] MEDS: Potassium Chloride Oral Tablet 20 MEQ 40 MEQ PO (08:29)
[2022-05-24] MEDS: Folic Acid 1 MG Tablet 0.5 MG PO (08:29)
[2022-05-24] MEDS: TICAGRELOR 90 MG TABLET PO (08:29)
[2022-05-24] MEDS: Atenolol 50 MG Tablet PO (08:29)
[2022-05-24] MEDS: Aspirin E.C. 81 MG Tablet PO (08:29)
[2022-05-24] MEDS: Isosorbide Mononitrate 30 MG Tablet PO (08:29)
[2022-05-24] MEDS: Furosemide 20 MG Tablet PO (08:31)
[2022-05-24] MEDS: amLODIPine 5 MG Tablet PO ×2 (08:31→11:02)
--- NOTE | 2022-05-24 09:01 | PN.CARD_ITS ---
Subjective Subjective The patient is awake and alert. He states he feels better overall. He notes no ongoing chest discomfort and states his breathing is improved. He also notes his lower extremity edema has improved. Objective Data Vital Signs: Vital Signs Temp Pulse Resp BP Pulse Ox O2 Del Method 98.0 F 67 18 160/85 H 95 Room Air 05/24/22 08:25 05/24/22 08:25 05/24/22 08:25 05/24/22 08:25 05/24/22 08:25 05/24/22 08:25 Oxygen Delivery Method Room Air Weight: 266 lb 12.149 oz Body Mass Index (BMI) 34.2 Intake & Output: Intake and Output for Last 24 Hours 05/22/22 05/23/22 05/24/22 23:59 23:59 23:59 Intake Total 565 / 815 300 / 300 Output Total 1500 / 2650 1800 / 1800 Balance -935 / -1835 -1500 / -1500 Lab / Micro Data Result Diagrams: 05/24/22 04:07 05/24/22 04:07 Labs: Laboratory Results - last 24 hr 05/23/22 04:22: Hemoglobin A1c 7.1 H 05/23/22 12:16: POC Glucose 200 H 05/23/22 17:00: POC Glucose 299 H 05/23/22 23:30: POC Glucose 240 H 05/24/22 04:07: WBC 7.0, RBC 4.31 L, Hgb 12.1 L, Hct 38.7 L, MCV 89.8, MCH 28.1, MCHC 31.3 L, RDW Std Deviation 50.3 H, RDW Coeff of Patricia 15.5 H, Plt Count 190, MPV 9.9 05/24/22 04:07: Sodium 140, Potassium 3.2 L, Chloride 102, Carbon Dioxide 31.0, Anion Gap 7, BUN 19 H, Creatinine 1.35 H, Estim Creat Clear Calc 53.28, Est GFR (MDRD) Af Amer 66, Est GFR (MDRD) Non-Af 54 L, BUN/Creatinine Ratio 14.1, Glucose 205 H, Calcium 8.9, Total Bilirubin 0.70, AST 12 L, ALT 18, Alkaline Phosphatase 46, Total Protein 6.6, Albumin 3.0 L, Globulin 3.6, Albumin/Globulin Ratio 0.8 L 05/24/22 04:07: Troponin I High Sens 232 H* 05/24/22 06:07: POC Glucose 210 H Cardiology Labs/Tests 05/23/22 04:22: Hemoglobin A1c 7.1 H 05/24/22 04:07: WBC 7.0, RBC 4.31 L, Hgb 12.1 L, Hct 38.7 L, MCV 89.8, MCH 28.1, MCHC 31.3 L, Plt Count 190, MPV 9.9 05/24/22 04:07: Sodium 140, Potassium 3.2 L, Chloride 102, Carbon Dioxide 31.0, Anion Gap 7, BUN 19 H, Creatinine 1.35 H, Est GFR (MDRD) Af Amer 66, Est GFR (MDRD) Non-Af 54 L, BUN/Creatinine Ratio 14.1, Glucose 205 H, Calcium 8.9, Total Bilirubin 0.70 Rhythm: Ventricular paced Radiography Diagnostic Testing: Radiology Impression Echocardiogram 05/22/22 21:58 Interpretation Summary The study was technically difficult. Contrast injection was performed. Segmental dysfunction with preserved ejection fraction (see wall motion). The estimated ejection fraction is 55 %. The left atrium is mildly enlarged. There is mild mitral annular calcification. Extension of the mitral annular calcification onto the base of the posterior rosa ral valve leaflet. Mild (1+) mitral valve insufficiency. Trivial tricuspid valve insufficiency. Right ventricular systolic pressure estimated to be 33 mmHg. Diastolic function is indeterminate. ICD or pacer leads identified within the right atrium ICD or pacer leads identified within the right ventricle. Ordering Physician: Baldemar Suero Performed By: Hannah Gage RCS Physical Exam Const alert, oriented x3 and no apparent distress HEENT normocephalic, head/scalp atraumatic and hearing grossly normal bilaterally Eyes PERRL, EOMs intact bilaterally, conjunctivae normal and no scleral icterus Neck full ROM, supple and no JVD Chest Chest: midline sternotomy incision and left pectoral incision Resp clear to auscultation bilaterally Cardio regular rate, regular rhythm, S1 normal heart sound and S2 normal heart sound GI normal to inspection, nondistended, normoactive bowel sounds Extremity no pedal edema Skin no rashes or lesions noted Psych mental status grossly normal Assessment & Plan Assessment/Plan (1) NSTEMI, initial episode of care: PLAN: The patient presents with findings compatible with an acute coronary syndrome/non-ST segment elevation VT. At the present time he appears without ongoing symptoms at rest. He will continue to be monitored. He will continue medical therapy. He has undergone further evaluation with a transthoracic echocardiogram with report is noted. He underwent further evaluation with diagnostic cardiac catheterization which led to diagonal branch PCI (PTCA/MONY). He will need to continue medical management. 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 transplanted heart: [place] heart Qualified Code(s): I25.810 - Atherosclerosis of coronary artery bypass graft(s) without angina pectoris PLAN: The patient has a history of CAD as previously noted. He has undergone revascularization in the past both percutaneously and surgically. He is continuing medical management. (3) Presence of stent of bypass graft: PLAN: The patient has a history of PCI to the SVG to the RCA performed at [facility] in 2015. He has undergone subsequent reevaluation both noninvasively and invasively. As noted above his invasive valuation led to the diagonal branch PTCA/MONY. He will continue medical therapy. (4) History of coronary artery bypass surgery: PLAN: The patient has remote CABG as noted. He has undergone additional evaluation with diagnostic cardiac catheterization. His ABAD to the LAD was patent. His SVG was patent and SVG was patent. Therapy at this time. (5) Presence of cardiac pacemaker: PLAN: The patient has a pacemaker in place. It has not been interrogated since April 2021. He will be asked to have future outpatient follow-up and pacemaker interrogation. (6) Pure hypercholesterolemia: PLAN: The patient should continue risk factor evaluation and care. (7) Essential hypertension: PLAN: The patient's blood pressures have been elevated. This may be a contributing factor to his symptoms and his objective findings. Thus his medications will be adjusted to try and bring his blood pressure under better control. Addt'l Comments This note was generated using a voice recognition system and there may be incorrect words, spelling or punctuation that were not noted when reviewing the office note prior to saving. Procedure Criteria Type of Procedure Procedure Type: Elective Elective Risks - COVID COVID Risk Discussion: The surgeon/proceduralist and patient have discussed in detail the risk of exposure to and/or potential harm posed by the COVID-19 virus with having a surgery/procedure at this time versus the risk of delaying the surgery/procedure. It is not possible to know either the risk of delaying the surgery or procedure or chance of getting an infection with perfect accuracy, but a joint decision was made between the patient and the surgeon/proceduralist to proceed at this time with the scheduled surgery/procedure as indicated on the consent form.
--- NOTE | 2022-05-24 09:25 | DCINST_ITS ---
Discharge Instructions Diet Discharge Diet: Low fat / Low cholesterol and 1800 Calorie Control Diet Activity May shower in (days): 1 Dressing / Incision Call your doctor if your incision/area has: Continuous Slow Oozing, Sudden Increased Bleeding, Increased Pain/ Swelling, Increased Redness, Foul Smelling Discharge and Swelling at the incision site Call your doctor if you observe: Shortness of breath, Chest pain and Increased palpitations (irregular heartbeat) Remove Dressing in: 1 day Follow Up Care Test Results: Test results from this visit will be discussed in further detail at your follow- up appointment, if applicable. Discharge Plan Admission Admit Date/Time: 05/23/22 15:00 Primary Reason for Your Visit: NSTEMI Attending Provider: Lino Kendall Primary Care Provider: Georgina Méndez Consulting Providers: Lalo Millan ; Baldemar Suero Discharge Orders/Prescriptions Prescriptions: New potassium chloride [Klor-Con M20] 20 mEq Tablet,Er Particles/Crystals 20 meq PO DAILYCM 30 Days Qty: 30 0RF amlodipine 10 mg Tablet 10 mg PO DAILY 30 Days Qty: 30 0RF furosemide 20 mg Tablet 20 mg PO DAILY 30 Days Qty: 30 0RF Brilinta 90 mg Tablet 90 mg PO BID 30 Days Qty: 60 0RF Continued Levemir FlexTouch U-100 Insuln 100 unit/mL (3 mL) insulin pen 20 unit subcut QHS isosorbide mononitrate 30 mg tablet extended release 24 hr 30 mg PO DAILY Qty: 30 11RF Rx Instructions: new script 05/22, not yet started glipizide 10 MG tablet 10 mg PO BIDAC folic acid 0.4 MG tablet 400 mcg PO DAILY@0800 aspirin 81 mg tablet,chewable 1 tab PO DAILY lisinopril 20 mg tablet 20 mg PO DAILY atenolol 50 mg tablet 50 mg PO DAILY lovastatin 20 mg tablet 20 mg PO DAILY Qty: 90 4RF nitroglycerin [Nitrostat] 0.4 mg tablet, sublingual 0.4 mg SUBLINGUAL Q5M PRN (Reason: chest pain) Qty: 25 3RF Held metformin 1,000 MG tablet 1,000 mg PO BIDCM Hold Instructions: Resume on 05/26/22. Discontinued clopidogrel 75 mg tablet 75 mg PO QDAY Qty: 90 4RF Referrals / Follow Up: Georgina Méndez MD [Primary Care Provider] - Lalo Millan MD [STAFF PHYSICIAN] - Within 2 Weeks Disposition Disposition (needs filled in before D/C Order can be placed): Home, Self Care
--- NOTE | 2022-05-24 09:32 | DS.PCM_ITS ---
Documented by User: FILOMENA Hirsch 05/24/22 09:43 Providers Date of Admission: 05/23/22 Date of Discharge: 05/24/22 Primary Care Physician: Dr. Georgina Méndez MD Consultations 05/22/22 21:58 Consult: Cardiology Routine Consulting Provider: Lalo Millan Reason for Consult: NSTEMI EMERGENT Consult: No MD Notified: Yes Date Notified: 05/22/22 Time Notified: 21:11 Method of Notification: ED Physician Initiated Reason For Visit: NSTEMI Diagnosis Discharge Diagnosis (1) NSTEMI, initial episode of care: Status: Acute Code(s): I21.4 - Non-ST elevation (NSTEMI) myocardial infarction (2) Atherosclerosis of coronary artery bypass graft without angina pectoris: Status: Chronic Code(s): I25.810 - Atherosclerosis of coronary artery bypass graft(s) without angina pectoris Qualifiers: [place] vs. transplanted heart: [place] heart Qualified Code(s): I25.810 - Atherosclerosis of coronary artery bypass graft(s) without angina pectoris (3) Presence of stent of bypass graft: Status: Chronic Code(s): Z95.828 - Presence of other vascular implants and grafts (4) History of coronary artery bypass surgery: Status: Acute Code(s): Z95.1 - Presence of aortocoronary bypass graft (5) Presence of cardiac pacemaker: Status: Chronic Code(s): Z95.0 - Presence of cardiac pacemaker (6) Pure hypercholesterolemia: Status: Chronic Code(s): E78.00 - Pure hypercholesterolemia, unspecified (7) Essential hypertension: Status: Acute Code(s): I10 - Essential (primary) hypertension Medications at Discharge Home Medications folic acid 400 mcg tablet 400 mcg PO DAILY@0800 07/28/16 glipizide 10 mg tablet 10 mg PO BIDAC 07/28/16 metformin 1,000 mg tablet 1,000 mg PO BIDCM 07/28/16 aspirin 81 mg chewable tablet 1 tab PO DAILY 07/07/21 lovastatin 20 mg tablet 20 mg PO DAILY #90 tabs 11/21/21 nitroglycerin 0.4 mg sublingual tablet (Nitrostat) 0.4 mg sublingual Q5M PRN chest pain #25 tabs 03/30/22 atenolol 50 mg tablet 50 mg PO DAILY 05/22/22 insulin detemir U-100 100 unit/mL (3 mL) subcutaneous pen (Levemir FlexTouch U- 100 Insulin) 20 unit subcut QHS 05/22/22 isosorbide mononitrate 30 mg tablet,extended release 24 hr 30 mg PO DAILY #30 tabs 05/22/22 lisinopril 20 mg tablet 20 mg PO DAILY 05/22/22 amlodipine 10 mg tablet 10 mg PO DAILY 30 days #30 tabs 05/24/22 furosemide 20 mg tablet 20 mg PO DAILY 30 days #30 tabs 05/24/22 potassium chloride 20 mEq tablet,extended release(part/cryst) (Klor-Con M) 20 meq PO DAILYCM 30 days #30 tabs 05/24/22 ticagrelor 90 mg tablet (Brilinta) 90 mg PO BID 30 days #60 tabs 05/24/22 Hospital Course Operations None Procedures 2-D Echocardiogram and Cardiac catheterization Summary of Care Provided Minutes Spent on Discharge: 35 Hospital Course: Patient is a 76-year-old male who originally came in on 05/23/2022 with complaints of chest pain. Patient has a history of CABG and was taken to cardiac catheterization on 05/23/2022. Patient received a stent to the Diagonal branch of the LAD. Patient has tolerated the procedure well and has had no complications. Patient will need to follow-up with Dr. Millan in 2 weeks in office. Patient underwent echocardiogram while hospitalized which demonstrated an EF of 55%. Patient will be discharged home with increased amlodipine and initiated on Brilinta and Lasix. Patient instructed to hold metformin until the . Physical Exam Const alert, oriented x3 and no apparent distress HEENT normocephalic and head/scalp atraumatic Eyes conjunctivae normal and no scleral icterus Neck no lymphadenopathy and supple General: trachea midline Resp normal respiratory effort, normal air movement and clear to auscultation bilaterally Cardio regular rate, regular rhythm, S1 normal heart sound, S2 normal heart sound and peripheral pulses 2+ throughout GI normal to inspection, nondistended, normoactive bowel sounds, soft to palpation and non-tender Skin skin turgor normal Skin Narrative: Surgical dressing to dry and intact Neuro no focal motor deficits and no sensory deficits noted Speech: speech normal Psych affect normal Weight / BMI Weight Weight: 266 lb 12.149 oz Body Mass Index (BMI) 34.2 ABG / Lab / Microbiology Data Result Diagrams: 05/24/22 04:07 05/24/22 04:07 Laboratory: Laboratory Results - last 24 hr 05/23/22 04:22: Hemoglobin A1c 7.1 H 05/23/22 12:16: POC Glucose 200 H 05/23/22 17:00: POC Glucose 299 H 05/23/22 23:30: POC Glucose 240 H 05/24/22 04:07: WBC 7.0, RBC 4.31 L, Hgb 12.1 L, Hct 38.7 L, MCV 89.8, MCH 28.1, MCHC 31.3 L, RDW Std Deviation 50.3 H, RDW Coeff of Patricia 15.5 H, Plt Count 190, MPV 9.9 05/24/22 04:07: Sodium 140, Potassium 3.2 L, Chloride 102, Carbon Dioxide 31.0, Anion Gap 7, BUN 19 H, Creatinine 1.35 H, Estim Creat Clear Calc 53.28, Est GFR (MDRD) Af Amer 66, Est GFR (MDRD) Non-Af 54 L, BUN/Creatinine Ratio 14.1, Glucose 205 H, Calcium 8.9, Total Bilirubin 0.70, AST 12 L, ALT 18, Alkaline Phosphatase 46, Total Protein 6.6, Albumin 3.0 L, Globulin 3.6, Albumin/Globulin Ratio 0.8 L 05/24/22 04:07: Troponin I High Sens 232 H* 05/24/22 06:07: POC Glucose 210 H Radiography Diagnostic Testing: Radiology Impression Echocardiogram 05/22/22 21:58 Interpretation Summary The study was technically difficult. Contrast injection was performed. Segmental dysfunction with preserved ejection fraction (see wall motion). The estimated ejection fraction is 55 %. The left atrium is mildly enlarged. There is mild mitral annular calcification. Extension of the mitral annular calcification onto the base of the posterior mitral valve leaflet. Mild (1+) mitral valve insufficiency. Trivial tricuspid valve insufficiency. Right ventricular systolic pressure estimated to be 33 mmHg. Diastolic function is indeterminate. ICD or pacer leads identified within the right atrium ICD or pacer leads identified within the right ventricle. Ordering Physician: Baldemar Suero Performed By: Hannah Gage RCS D/C Instructions Discharge Diet: Low fat / Low cholesterol and 1800 Calorie Control Diet May shower in (days): 1 Call your doctor if your incision/area has: Continuous Slow Oozing, Sudden Increased Bleeding, Increased Pain/ Swelling, Increased Redness, Foul Smelling Discharge and Swelling at the incision site Call your doctor if you observe: Shortness of breath, Chest pain and Increased palpitations (irregular heartbeat) Meaningful Use Info Meaningful Use Diagnoses (Choose all that apply): None applicable and AMI AMI/Post PCI/Angioplasty Aspirin given w/in 24hrs of arrival?: Yes ASA at discharge?: Yes Antiplatelet Therapy at Discharge:: Yes Statins at discharge?: Yes Kyle/ARB at discharge?: Yes Beta Andry at discharge?: Yes Done w/ Acute ID measure.: Yes Documented LVEF (%): 55 Discharge Plan Admission Admit Date/Time: 05/23/22 15:00 Primary Reason for Your Visit: NSTEMI Attending Provider: Lino Kendall Primary Care Provider: Georgina Méndez Consulting Providers: Lalo Millan ; Baldemar Suero Discharge Orders/Prescriptions Prescriptions: New potassium chloride [Klor-Con M20] 20 mEq Tablet,Er Particles/Crystals 20 meq PO DAILYCM 30 Days Qty: 30 0RF amlodipine 10 mg Tablet 10 mg PO DAILY 30 Days Qty: 30 0RF furosemide 20 mg Tablet 20 mg PO DAILY 30 Days Qty: 30 0RF Brilinta 90 mg Tablet 90 mg PO BID 30 Days Qty: 60 0RF Continued Levemir FlexTouch U-100 Insuln 100 unit/mL (3 mL) insulin pen 20 unit subcut QHS isosorbide mononitrate 30 mg tablet extended release 24 hr 30 mg PO DAILY Qty: 30 11RF Rx Instructions: new script 05/22, not yet started glipizide 10 MG tablet 10 mg PO BIDAC folic acid 0.4 MG tablet 400 mcg PO DAILY@0800 aspirin 81 mg tablet,chewable 1 tab PO DAILY lisinopril 20 mg tablet 20 mg PO DAILY atenolol 50 mg tablet 50 mg PO DAILY lovastatin 20 mg tablet 20 mg PO DAILY Qty: 90 4RF nitroglycerin [Nitrostat] 0.4 mg tablet, sublingual 0.4 mg SUBLINGUAL Q5M PRN (Reason: chest pain) Qty: 25 3RF Held metformin 1,000 MG tablet 1,000 mg PO BIDCM Hold Instructions: Resume on 05/26/22. Discontinued clopidogrel 75 mg tablet 75 mg PO QDAY Qty: 90 4RF Referrals / Follow Up: Georgina Méndez MD [Primary Care Provider] - Lalo Millan MD [STAFF PHYSICIAN] - 06/06/22 9:30 am Disposition Disposition (needs filled in before D/C Order can be placed): Home, Self Care Documented by User: Dr. Lino Kendall MD 05/24/22 10:17 Providers Date of Admission: 05/23/22 Reason For Visit: NSTEMI Diagnosis Discharge Diagnosis (1) NSTEMI, initial episode of care: Status: Acute Code(s): I21.4 - Non-ST elevation (NSTEMI) myocardial infarction (2) Atherosclerosis of coronary artery bypass graft without angina pectoris: Status: Chronic Code(s): I25.810 - Atherosclerosis of coronary artery bypass graft(s) without angina pectoris Qualifiers: [place] vs. transplanted heart: [place] heart Qualified Code(s): I25.810 - Atherosclerosis of coronary artery bypass graft(s) without angina pectoris (3) Presence of stent of bypass graft: Status: Chronic Code(s): Z95.828 - Presence of other vascular implants and grafts (4) History of coronary artery bypass surgery: Status: Acute Code(s): Z95.1 - Presence of aortocoronary bypass graft (5) Presence of cardiac pacemaker: Status: Chronic Code(s): Z95.0 - Presence of cardiac pacemaker (6) Pure hypercholesterolemia: Status: Chronic Code(s): E78.00 - Pure hypercholesterolemia, unspecified (7) Essential hypertension: Status: Acute Code(s): I10 - Essential (primary) hypertension Medications at Discharge Home Medications folic acid 400 mcg tablet 400 mcg PO DAILY@0800 07/28/16 glipizide 10 mg tablet 10 mg PO BIDAC 07/28/16 metformin 1,000 mg tablet 1,000 mg PO BIDCM 07/28/16 aspirin 81 mg chewable tablet 1 tab PO DAILY 07/07/21 lovastatin 20 mg tablet 20 mg PO DAILY #90 tabs 11/21/21 nitroglycerin 0.4 mg sublingual tablet (Nitrostat) 0.4 mg sublingual Q5M PRN chest pain #25 tabs 03/30/22 atenolol 50 mg tablet 50 mg PO DAILY 05/22/22 insulin detemir U-100 100 unit/mL (3 mL) subcutaneous pen (Levemir FlexTouch U- 100 Insulin) 20 unit subcut QHS 05/22/22 isosorbide mononitrate 30 mg tablet,extended release 24 hr 30 mg PO DAILY #30 tabs 05/22/22 lisinopril 20 mg tablet 20 mg PO DAILY 05/22/22 amlodipine 10 mg tablet 10 mg PO DAILY 30 days #30 tabs 05/24/22 furosemide 20 mg tablet 20 mg PO DAILY 30 days #30 tabs 05/24/22 potassium chloride 20 mEq tablet,extended release(part/cryst) (Klor-Con M) 20 meq PO DAILYCM 30 days #30 tabs 05/24/22 ticagrelor 90 mg tablet (Brilinta) 90 mg PO BID 30 days #60 tabs 05/24/22 Hospital Course Summary of Care Provided Minutes Spent on Discharge: 45 ABG / Lab / Microbiology Data Result Diagrams: 05/24/22 04:07 05/24/22 04:07 Discharge Plan Admission Admit Date/Time: 05/23/22 15:00 Primary Reason for Your Visit: NSTEMI Attending Provider: Lino Kendall Primary Care Provider: Georgina Méndez Consulting Providers: Lalo Millan ; Baldemar Suero Discharge Orders/Prescriptions Prescriptions: New potassium chloride [Klor-Con M20] 20 mEq Tablet,Er Particles/Crystals 20 meq PO DAILYCM 30 Days Qty: 30 0RF amlodipine 10 mg Tablet 10 mg PO DAILY 30 Days Qty: 30 0RF furosemide 20 mg Tablet 20 mg PO DAILY 30 Days Qty: 30 0RF Brilinta 90 mg Tablet 90 mg PO BID 30 Days Qty: 60 0RF Continued Levemir FlexTouch U-100 Insuln 100 unit/mL (3 mL) insulin pen 20 unit subcut QHS isosorbide mononitrate 30 mg tablet extended release 24 hr 30 mg PO DAILY Qty: 30 11RF Rx Instructions: new script 05/22, not yet started glipizide 10 MG tablet 10 mg PO BIDAC folic acid 0.4 MG tablet 400 mcg PO DAILY@0800 aspirin 81 mg tablet,chewable 1 tab PO DAILY lisinopril 20 mg tablet 20 mg PO DAILY atenolol 50 mg tablet 50 mg PO DAILY lovastatin 20 mg tablet 20 mg PO DAILY Qty: 90 4RF nitroglycerin [Nitrostat] 0.4 mg tablet, sublingual 0.4 mg SUBLINGUAL Q5M PRN (Reason: chest pain) Qty: 25 3RF Held metformin 1,000 MG tablet 1,000 mg PO BIDCM Hold Instructions: Resume on 05/26/22. Discontinued clopidogrel 75 mg tablet 75 mg PO QDAY Qty: 90 4RF Referrals / Follow Up: Georgina Méndez MD [Primary Care Provider] - Lalo Millan MD [STAFF PHYSICIAN] - 06/06/22 9:30 am Disposition Disposition (needs filled in before D/C Order can be placed): Home, Self Care Charges/Coding Addendum Addendum: Dr. Kendall I personally examined the patient and reviewed the chart. I agree with the above.? 76-year-old male presents to the hospital with chest pain over the last 2 to 3 weeks.? He does have a prior history of coronary artery disease and has a history of a CABG as well as a stent.? He underwent cardiac cath today and needed a stent placed in his diagonal branch.? We will continue to adjust his blood pressure medication as he was fairly hypertensive in the [employer].? He is also complaining of some shortness of breath so we will trial him on a one-time dose of Lasix and monitor.? Also continue with dual antiplatelets, his Plavix was discontinued and he was continued on Brilinta however he cannot afford this as an outpatient will likely have to go back to Plavix.? Clinical time spent in all aspects of patient care: 18 minutes 05/24/2022: Doing well, no issues overnight. Says that his chest pain is completely resolved. He was cleared for discharge by cardiology and he was started on Norvasc 10 mg p.o. daily as well as 20 mg of Lasix p.o. daily. 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 I recommend outpatient follow-up with his PCP in 3 to 5 days and with cardiology within the next month. I discussed with him the plan for discharge today and he expressed understanding of the risk and benefits of going home and would like to go home today. A total of 45 minutes was spent in clinical care and discharge planning with over half of that time spent by myself. Visit Charges Inpatient E&M: 74102 Disch Hosp
--- NOTE | 2022-05-24 10:00 | EKG12_ITS ---
Test Reason : cp Blood Pressure : / mmHG Vent. Rate : 080 BPM Atrial Rate : 080 BPM P-R Int : 188 ms QRS Dur : 184 ms QT Int : 460 ms P-R-T Axes : 083 -67 108 degrees QTc Int : 530 ms Atrial-sensed ventricular-paced rhythm Abnormal ECG When compared with ECG of 31-JUL-2016 05:11, Electronic ventricular pacemaker has replaced Sinus rhythm Confirmed by COLUMBA LAIRD, JUNAID ([id number]), supervising editor news reel VINH MEZA ([id number]) on 05/30/2022 1:01:00 PM Referred By: Confirmed By:JUNAID WATERMAN MD
--- NOTE | 2022-05-24 11:06 | PHA.DC.MC ---
Pharmacy Service has performed discharge medication reconciliation and counseling for this patient. 1. AMLODIPINE 10MG PO DAILY 2. FUROSEMIDE 20MG PO DAILY 3. POTASSIUM CHLORIDE 20MEQ PO DAILYCM 4. TICAGRELOR 90MG PO BID The patient's discharge medication list was reviewed for discrepancies and discrepancies were resolved. Home Medications folic acid 400 mcg tablet 400 mcg PO DAILY@0800 07/28/16 glipizide 10 mg tablet 10 mg PO BIDAC 07/28/16 metformin 1,000 mg tablet 1,000 mg PO BIDCM 07/28/16 aspirin 81 mg chewable tablet 1 tab PO DAILY 07/07/21 lovastatin 20 mg tablet 20 mg PO DAILY #90 tabs 11/21/21 nitroglycerin 0.4 mg sublingual tablet (Nitrostat) 0.4 mg sublingual Q5M PRN chest pain #25 tabs 03/30/22 atenolol 50 mg tablet 50 mg PO DAILY 05/22/22 insulin detemir U-100 100 unit/mL (3 mL) subcutaneous pen (Levemir FlexTouch U-100 Insulin) 20 unit subcut QHS 05/22/22 isosorbide mononitrate 30 mg tablet,extended release 24 hr 30 mg PO DAILY #30 tabs 05/22/22 lisinopril 20 mg tablet 20 mg PO DAILY 05/22/22 amlodipine 10 mg tablet 10 mg PO DAILY 30 days #30 tabs 05/24/22 furosemide 20 mg tablet 20 mg PO DAILY 30 days #30 tabs 05/24/22 potassium chloride 20 mEq tablet,extended release(part/cryst) (Klor-Con M) 20 meq PO DAILYCM 30 days #30 tabs 05/24/22 ticagrelor 90 mg tablet (Brilinta) 90 mg PO BID 30 days #60 tabs 05/24/22 The patient was counseled on the following discharge medications and changes in medications for homegoing were reviewed. The Reason for Use, instructions for use, and potential side effects were reviewed for all new medications. The patient's questions regarding all of their medications were answered. The patient was able to verbally demonstrate an understanding of their discharge medications.
--- NOTE | 2022-05-24 11:15 | EKG12_ITS ---
Test Reason : CP ADMIT Blood Pressure : / mmHG Vent. Rate : 075 BPM Atrial Rate : 075 BPM P-R Int : 190 ms QRS Dur : 192 ms QT Int : 492 ms P-R-T Axes : 067 -70 105 degrees QTc Int : 549 ms Atrial-sensed ventricular-paced rhythm Abnormal ECG When compared with ECG of 22-MAY-2022 18:27, MANUAL COMPARISON REQUIRED, DATA IS UNCONFIRMED Confirmed by COLUMBA LAIRD, JUNAID ([id number]), index editor VINH MEZA ([id number]) on 05/29/2022 11:09:16 AM Referred By: Confirmed By:JUNAID WATERMAN MD
[2022-05-24 13:15] LABS: Bedside Glucose 297 mg/dL (74-106)
[2022-05-28 08:04] LABS: Bedside Glucose 290 mg/dL (74-106)
== END 2022-05-24 09:30 | disposition home or self-care (01) | DRG 246 ==
LOC: ED 21:15 → PCU 21:28
PROVIDERS: Internal Medicine Interventional Cardiology; Nurse Practitioner Family; Admitting Provider Hospitalist; Emergency Provider Student in an Organized Health Care Education/Training Program; PCP Internal Medicine; Visit Provider Family Medicine
DX: I21.A1 Myocardial infarction type 2 (principal); I50.31 Acute diastolic (congestive) heart failure; I25.810 Atherosclerosis of coronary artery bypass graft(s) without angina pectoris; I16.1 Hypertensive emergency; E11.9 Type 2 diabetes mellitus without complications; Z79.4 Long term (current) use of insulin; I11.0 Hypertensive heart disease with heart failure; I25.2 Old myocardial infarction; E78.00 Pure hypercholesterolemia, unspecified; I45.9 Conduction disorder, unspecified; Z95.0 Presence of cardiac pacemaker; Z95.828 Presence of other vascular implants and grafts; Z79.82 Long term (current) use of aspirin; Z79.899 Other long term (current) drug therapy; Z87.891 Personal history of nicotine dependence
CPT/HCPCS: 36415; 71045; 80048; 80053; 80061; 82962; 83036; 83880; 84484; 85025; 85027; 92928; 93005; 93306; 93455; 99152; 99153; 99285; C1874; J7030; Q9957; Q9967; A4216; C1725; C1760; C1769; C1887; C1894; C8929; C9600; J1940; J2405

== ENCOUNTER → 2022-05-22 | Outpatient (CLI) | payer MEDICARE, SELFPAY ==
[2022-05-22 16:23] LABS: Absolute Lymphocyte Count 1.67 X10^3/uL (0.83-4.51); Absolute Neutrophil Count 4.2 X10^3/uL (2.0-7.7); Basophil# 0.02 X10^3/uL; Basophil% 0.3 % (0-1); Eosinophils% 1.5 % (0-5); Hematocrit 41.4 % (40-54); Hemoglobin 12.7 g/dL (13.0-16.5); Lymphocyte # 1.67 X10^3/ul (0.83-4.51); Mean Corp Hgb Conc 30.7 g/dL (32-36); Mean Corpuscular Hgb 28.3 pg (27.0-32.0); Mean Corpuscular Volume 92.2 fL (80-94); Mean Platelet Vol. 10.8 fl (6.2-12.0); Monocyte# 0.69 X10^3/uL; Monocyte% 10.3 % (0-10); NRBC Flagged by Analyzer 0 % (0-5); Neutrophil # 4.16 X10^3/uL (2.7-7.7); Neutrophil % 62.5 % (47-70); Platelet Count 216 K/mm3 (150-450); RBC Distribution Width CV 15.7 % (11.6-14.6); RBC Distribution Width SD 52.6 fl (35.1-43.9); Red Blood Count 4.49 M/mm3 (4.6-6.2); White Blood Count 6.7 K/mm3 (4.4-11.0)
[2022-05-22 16:52] LABS: BNP,B-Type NATRIURETIC PEPTIDE 540.5 pg/mL (0-100)
[2022-05-22 17:10] LABS: Anion Gap 3 (5-15); BUN 22 mg/dL (7-18); BUN/Creat Ratio 16.7 RATIO (10-20); Calcium,Total 9.2 mg/dL (8.5-10.1); Chloride 107 mmol/L (98-107); Creatinine, Serum 1.32 mg/dL (0.70-1.30); EST Glomerular Filtration Rate 56 mL/min (>60); Est Glom Filt Rate - Afr Amer 68 mL/min (>60); Glucose 107 mg/dL (74-106); Potassium 4.3 mmol/L (3.5-5.1); Sodium Level 142 mmol/L (136-145); Troponin-I HS 136 pg/mL (3.0-78.0)
== END | disposition home or self-care (01) ==
LOC: LAB 14:26
PROVIDERS: PCP Internal Medicine; Visit Provider Nurse Practitioner Family
DX: R06.09 Other forms of dyspnea (principal); R07.9 Chest pain, unspecified
CPT/HCPCS: 36415; 80048; 83880; 84484; 85025